=== PATIENT | female | born 1980 | race Caucasian/White ===

== ENCOUNTER 2024-07-16 14:07 | Inpatient (IN) | payer MEDICAID, OTHER ==
[~2024-07-16] VITALS: Ht 149.9 cm; Wt 63.3 kg
--- NOTE | 2024-07-16 14:28 | ED.PDOC ---
History of Present Illness HPI Comments 43 year old male presents to the ED with a chief complaint of generalized weakness onset 4 days. Patient states began experiencing LT flank, LUQ pain for the past 4 days, as well as chest pain for the past 2 days as well as shortness of breath, nausea, vomiting. Patient noticed her menstrual cycle has lasted 1 month, past 3 days has passed large blood clots with pelvic cramping. Upon ED arrival, patient appears pale, tachycardiac with HR 120. PMHx uterine fibroids, pancreatitis. Denies diarrhea, dysuria, headache, cough, congestion, fevers. No other symptoms or modifying factors present at this time. 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 Family History Family History: Unknown Social History Smoker: Cigarettes Alcohol: Occasionally Drugs: Denies Drug Use, Marijuana Lives In: Home Constitutional: reports: fatigue, weakness; denies: chills, diaphoresis, fever, malaise, sweats, others EENTM: denies: blurred vision, double vision, ear bleeding, ear discharge, ear drainage, ear pain, ear ringing, eye pain, eye redness, hearing loss, mouth pain, mouth swelling, nasal discharge, nose bleeding, nose congestion, nose pain, photophobia, tearing, throat pain, throat swelling, voice changes, others Respiratory: reports: shortness of breath; denies: cough, hemoptysis, orthopnea, SOB at rest, SOB with excertion, stridor, wheezing, others Cardiovascular: reports: chest pain; denies: dizzy spells, diaphoresis, Dyspnea on exertion, edema, irregular heart beat, left arm pain, lightheadedness, palpitations, PND, syncope, others Gastrointestinal: reports: abdominal pain, nausea, poor appetite, vomiting; denies: abdomen distended, blood streaked bowels, constipated, diarrhea, dysphagia, difficulty swallowing, hematemesis, melena, poor fluid intake, rectal bleeding, rectal pain, others Genitourinary: reports: abnormal vagina bleeding; denies: burning, dyspareunia, dysuria, flank pain, frequency, hematuria, incontinence, pain, , vagina discharge, urgency, others Neurological: reports: weakness; denies: dizziness, fainting, headache, left sided numbness, left sided weakness, numbness, paresthesia, pre-existing deficit, right sided numbness, right sided weakness, seizure, speech problems, tingling, tremors, others Musculoskeletal: denies: back pain, gout, joint pain, joint swelling, muscle pain, muscle stiffness, neck pain, others Integumetry: denies: bruises, change in color, change in hair/nails, dryness, laceration, lesions, lumps, rash, wounds, others Allergic/Immunocompromised: denies: Difficulty Healing, Frequent Infections, Hives, Itching, others Hematologic/Lymphatic: denies: anemia, blood clots, easy bleeding, easy bruising, swollen glands, others Endocrine: denies: excessive hunger, excessive sweating, excessive thirst, excessive urination, flushing, intolerance to cold, intolerance to heat, unexplained weight gain, unexplained weight loss, others Psychiatric: denies: anxiety, bipolar disorder, depression, hopeless, panic disorder, schizophrenia, sleepless, suicidal, others All Other Systems: Reviewed and Negative Physical Exam General Appearance: Moderate Distress, Normal HEENT: Normal ENT Inspection, Pharynx Normal, TMs Normal Neck: Full Range of Motion, Non-Tender, Normal, Normal Inspection Respiratory: Chest Non-Tender, Lungs Clear, No Accessory Muscle Use, No Respiratory Distress, Normal Breath Sounds Cardiovascular: No Edema, No JVD, No Murmur, No Gallop, Normal Peripheral Pulses, Tachycardia Breast Exam: Deferred Gastrointestinal: No Organomegaly, Non Tender, No Pulsatile Mass, Normal Bowel Sounds, Soft Genitalia: Deferred Pelvic: Deferred Rectal: Deferred Extremities: No calf tenderness, Normal capillary refill, Normal inspection, Normal range of motion, Non-tender, No pedal edema Musculoskeletal : Apperance: Normal Neurologic: Alert, work counselor II-XII nml as Tested, No Motor Deficits, Normal Affect, Normal Mood, No Sensory Deficits Cerebellar Function: NOT DONE Reflexes: NOT DONE Skin: Dry, Normal Color, Warm Peripheral Pulses: 3+ Radial (R), 3+ Radial (L) Lymphatic: No Adenopathy Was a procedure done? Was a procedure done?: No Differential Dx Considerations may include: Anemia Electrolyte imbalance X-Ray, Labs, Meds, VS Vital Signs Date Time Temp Pulse Resp B/P (MAP) Pulse Ox O2 Delivery O2 Flow Rate FiO2 07/16/24 15:31 103 14 137/89 07/16/24 14:53 88 14 98 Room Air* 0 21 07/16/24 14:53 97.5 101 18 138/95 (109) 94 97.5 07/16/24 14:50 92 07/16/24 14:20 126 07/16/24 14:17 98.6 125 17 126/85 (99) 100 98.6 Lab Test 07/16/24 14:47 07/16/24 14:14 Range/Units White Blood Count 8.1 4.4-10.8 10^3/uL Red Blood Count 3.95 L 4.0-5.20 10^6/uL Hemoglobin 8.2 L 12.2-16.2 g/dL Hematocrit 27.8 L 36.0-46.0 % Mean Corpuscular Volume 70.2 L 80.0-100.0 fL Mean Corpuscular Hemoglobin 20.7 L 28.0-32.0 pg Mean Corpuscular Hemoglobin Concent 29.5 L 32.0-36.0 g/dL Red Cell Distribution Width 20.9 H 11.8-14.3 % Platelet Count 412 140-450 10^3/uL Mean Platelet Volume 9.7 6.9-10.8 fL Neutrophils (%) (Auto) 67.1 37.0-80.0 % Lymphocytes (%) (Auto) 23.7 10.0-50.0 % Monocytes (%) (Auto) 6.0 0.0-12.0 % Eosinophils (%) (Auto) 1.7 0.0-7.0 % Basophils (%) (Auto) 1.5 0.0-2.0 % Neutrophils # (Auto) 5.5 1.6-8.6 10 ^3/uL Lymphocytes # (Auto) 1.9 0.4-5.4 10 ^3/uL Monocytes # (Auto) 0.5 0-1.3 10 ^3/uL Eosinophils # (Auto) 0.1 0-0.8 10 ^3/uL Basophils # (Auto) 0.1 0-0.2 10 ^3/uL Nucleated Red Blood Cells 0.0 % Sodium Level 135 L 136-145 mmol/L Potassium Level 4.1 3.5-5.1 mmol/L Chloride Level 99 98-107 mmol/L Carbon Dioxide Level 14 L 20-31 mmol/L Anion Gap 22 H 5-15 Blood Urea Nitrogen 11 9-23 mg/dL Creatinine 0.75 0.550-1.02 mg/dL Glomerular Filtration Rate Calc 102 >90 mL/min BUN/Creatinine Ratio 14.7 10.0-20.0 Serum Glucose 65 L 74-106 mg/dL Calcium Level 9.6 8.7-10.4 mg/dL Troponin I High Sensitivity < 3 L </=34 ng/L Lipase 197 H 12-53 U/L Urine Color Yellow Yellow Urine Clarity Turbid H Clear Urine pH 5.5 5.0-9.0 Urine Specific [place] 1.025 1.001-1.035 Urine Protein 1+ H Negative Urine Ketones 4+ H Negative Urine Blood 3+ H Negative /uL Urine Nitrite Negative Negative Urine Bilirubin Negative Negative Urine Urobilinogen 3 H Negative mg/dL Urine Leukocyte Esterase Negative Negative /uL Urine RBC 373 0 - 4 /hpf Urine Microscopic WBC 5 0-5 /HPF Urine Squamous Epithelial Cells Few <5 /hpf Urine Bacteria Few H None Seen /hpf Urine Hyaline Casts Mod 0 - 2 /lpf Urine Mucus Few None Seen Urine Glucose Normal Normal mg/dL Current Medications Medications (Trade) Dose Ordered Sig/Lashawn Route Start Time Stop Time Status Last Admin Sodium Chloride 1,000 ml @ 1,000 mls/hr Q1H ONCE IV 07/16/24 14:30 07/16/24 15:29 DC 07/16/24 15:30 Morphine Sulfate 2 mg ONCE ONCE IV 07/16/24 15:15 07/16/24 15:16 DC 07/16/24 15:31 Ondansetron HCl (Zofran) 4 mg ONCE ONCE IV 07/16/24 15:15 07/16/24 15:16 DC 07/16/24 15:31 Patient alert. Complaining of many symptoms. Vitals stable. Answering all questions. Abdomen is soft. Continues to have chest pain abdominal pain. Saturation pristine on room air. Lipase elevated. Anemia. Urinalysis shows blood. Has a anemia. Tachycardia. Saturation pristine on room air. No leg swelling. Urine shows ketones. Establish intravenous access. Was given fluids. Was given morphine. Was given Zofran. Was given Rocephin. Was given Flagyl. Reviewed her history. Explained to the patient. Continue cardiac monitoring. EKG reviewed does not show any acute changes. [address] [address] Ph: [phone] DIAGNOSTIC IMAGING Diagnostic Imaging Report : [id number] Signed PATIENT: HAYDE CARBAJAL RACCT: [id number] UNIT: [id number] : 1980 LOC: ER ROOM / BED: / AGE / SEX: 43 / F ADM STATUS: REG ER SERVICE 142 ORDERING PHYSICIAN: PILY KING MD PROCEDURE(s): CXRP - CHEST PORTABLE REASON: sob ORDER NUMBER(s): [id number], ACCESSION NUMBER(s): [id number] CHEST RADIOGRAPH Indication: sob Technique: Single frontal view of the chest was obtained Comparison: None FINDINGS: Lines and Tubes: None Lungs: No focal consolidation. Pleura: No effusion. No pneumothorax. Cardiomediastinal contours: Unremarkable Bones: No acute osseous abnormality. IMPRESSION: No acute cardiopulmonary disease. ATED BY: PAU BLOOD DO DICTATED DATE/TIME: 07/16/241510 SIGNED BY: PAU BLOOD DO SIGNED DATE/TIME: 07/16/24 151 CC: Time of 1ST Reevaluation: 14:49 Reevaluation 1ST: Unchanged Patient Education/Counseling: Diagnosis, Treatment, Prognosis Family Education/Counseling: No Family Present Departure 1 Departure Time of Disposition: 14:55 Impression: Primary Impression: Chest pain of unknown etiology Additional Impressions: Acute pancreatitis Qualified Codes: K85.90 - Acute pancreatitis without necrosis or infection, unspecified Severe anemia Dehydration Disposition: ADMITTED INPATIENT Admit to: Med Surg Condition: Guarded Critical Care Note Critical Care Time?: Yes (45 min-critical care time only) Stability Stability form required: No Heart Score Heart Score: Heart Score Response (Comments) Value History Slightly Suspicious 0 EKG Normal 0 Age <45 0 Risk Factors No known risk factors 0 Troponin Normal limit 0 Total 0 I personally scribed for PILY KING MD ([email or web address]) on 07/16/24 at 14:28. Electronically submitted by Yesenia Jay ([email or web address]). I personally scribed for PILY KING MD ([email or web address]) on 07/16/24 at 15:57. Electronically submitted by Yesenia Jay ([email or web address]). PILY KING MD Jul 16, 2024 14:28
--- NOTE | 2024-07-16 14:30 | ECG ---
[facility] Test Date: 2024-07-16 Test Time: 14:20:11 Pat Name: HAYDE CARBAJAL Department: ER Room: 0215T Gender: F Short Order Cook: GP : 1980 Requested By: PILY KING Order Number: [id number] Reading MD: Blair Heller Measurements Intervals [place] Rate: 126 P: 14 SC: 105 QRS: 73 QRSD: 86 T: 81 QT: 326 QTc: 473 Interpretive Statements Sinus tachycardia Multiple premature complexes, vent & supraven Aberrant complex Nonspecific T abnormalities, lateral leads Electronically Signed On 07-18-2024 22:08:22 PDT by Blair Heller Please click the below link to view image of tracing.
[2024-07-16 14:53] VITALS: PULSE 88; RESP 14; O2SAT 98
--- NOTE | 2024-07-16 15:13 | DVH ---
CHEST RADIOGRAPH Indication: sob Technique: Single frontal view of the chest was obtained Comparison: None FINDINGS: Lines and Tubes: None Lungs: No focal consolidation. Pleura: No effusion. No pneumothorax. Cardiomediastinal contours: Unremarkable Bones: No acute osseous abnormality. IMPRESSION: No acute cardiopulmonary disease.
[2024-07-16] MEDS: SODIUM CHLORIDE 0.9% 1,000 ML IV ONE (15:30)
[2024-07-16] MEDS: MORPHINE SULFATE INJ 2 MG/ml SYRG IV ONE ×2 (15:31→20:11)
[2024-07-16] MEDS: ONDANSETRON HCL 4 MG/2 ML VIAL IV ONE ×2 (15:31→20:11)
[2024-07-16 15:37] LABS: Basophils # (auto) 0.1 10 ^3/uL (0-0.2); Basophils % (auto) 1.5 % (0.0-2.0); Eosinophils # (auto) 0.1 10 ^3/uL (0-0.8); Eosinophils % (auto) 1.7 % (0.0-7.0); Hematocrit 27.8 % (36.0-46.0); Hemoglobin 8.2 g/dL (12.2-16.2); Lymphocytes # (auto) 1.9 10 ^3/uL (0.4-5.4); Lymphocytes % (auto) 23.7 % (10.0-50.0); Mean Corpuscular Hemoglobin 20.7 pg (28.0-32.0); Mean Corpuscular Hgb Conc. 29.5 g/dL (32.0-36.0); Mean Corpuscular Volume 70.2 fL (80.0-100.0); Monocytes # (auto) 0.5 10 ^3/uL (0-1.3); Neutrophils # (auto) 5.5 10 ^3/uL (1.6-8.6); Neutrophils % (auto) 67.1 % (37.0-80.0); Platelet Count (auto) 412 10^3/uL (140-450); Red Blood Cells 3.95 10^6/uL (4.0-5.20); Red Cell Distribution Width 20.9 % (11.8-14.3); White Blood Cell 8.1 10^3/uL (4.4-10.8)
[2024-07-16 15:39] LABS: Chloride 99 mmol/L (98-107); Potassium 4.1 mmol/L (3.5-5.1)
[2024-07-16 15:40] LABS: Anion Gap 22 (5-15); Calcium 9.6 mg/dL (8.7-10.4)
[2024-07-16 15:41] LABS: Urine Bacteria FEW /hpf (None Seen); Urine Blood 3+ /uL (Negative); Urine Clarity Turbid (Clear); Urine Color Yellow (Yellow); Urine Hyaline Cast MOD /lpf (0 - 2); Urine Mucus FEW (None Seen); Urine Protein, UAD 1+ (Negative); Urine Specific Gravity 1.025 (1.001-1.035); Urine Squamous Epithelial Cell FEW /hpf (<5); Urine Urobilinogen 3 mg/dL (Negative); Urine WBC 5 /HPF (0-5); Urine pH 5.5 (5.0-9.0)
[2024-07-16 15:45] LABS: BUN/Creatinine Ratio 14.7 (10.0-20.0); Blood Urea Nitrogen 11 mg/dL (9-23)
[2024-07-16 15:46] LABS: Carbon Dioxide 14 mmol/L (20-31); Glucose 65 mg/dL (74-106); Lipase 197 U/L (12-53); Sodium 135 mmol/L (136-145)
[2024-07-16] MEDS: metroNIDAZOLE 500MG/100ML 100 ML IV ONE (16:45)
[2024-07-16] MEDS: cefTRIAXone 1GM/50ML D5W 50 ML IV ONE (16:48)
--- NOTE | 2024-07-16 18:26 | DVH ---
Procedure: CT CT AB PEL WO CON-NO ORAL OR IV 07/16/2024 05:43 PM Indication: pancreas Comparison Study: None Technique: Axial images were obtained and reformatted in coronal and sagittal planes. All CT scans at this medical facility are performed using dose modulation techniques as appropriate to a performed e xam including the following: Automated exposure control was utilized; adjustment of the MA and/or KV according to patient size; and use of iterative reconstruction technique. CT Dose: CTDI volume is 6 m Gy. Dose-length product is 289 mGy*cm FINDINGS: Lower Chest: Unremarkable. Hepatobiliary: Hepatomegaly and hepatic steatosis with areas of focal hepatic mass. Adjacent to gall bladder fossa. No intrahepatic or extrahepatic ductal dilatation. Spleen: Unremarkable. Pancreas: Mild peripancreatic fat stranding noted. No pancreatic ductal dilatation. No solid or cyst ic lesions identified in this unenhanced study. Adrenal Glands: Unremarkable. tract: The kidneys are normal in size bilaterally without hydronephrosis or nephrolithiasis. The u rinary bladder is unremarkable. GI tract: The stomach is grossly normal in appearance. No evidence of small bowel obstruction. Scatte red colonic diverticula are noted without evidence of diverticulitis. The appendix is normal. Lymphatics: No mesenteric, retroperitoneal or periportal lymphadenopathy. Vasculature: The abdominal aorta is normal in in caliber. Pelvic Organs: Unremarkable Bones/soft tissues: No acute abnormality. Partially seen bilateral breast implants. Other: None. IMPRESSION: 1. Mild peripancreatic edema may indicate developing acute pancreatitis. No pancreatic ductal dilatat ion. No pseudocyst. 2. Hepatomegaly and hepatic steatosis. 3. Scattered colonic diverticula.
[2024-07-16 19:50] VITALS: PULSE 118; RESP 18; O2SAT 96
--- NOTE | 2024-07-16 23:49 | DVHHPRES ---
History of Present Illness Resident Creating Document: CORINE GRIFFITH RESDIENT History of Present Illness This is a 43-year-old female with past medical history of uterine fibroid recurrent pancreatitis (likely due to alcohol use disorder), came to the hospital due to abdominal pain since 4 day. Pain is localized on left upper quadrant radiating to the epigastric area, left lower quadrant and left shoulder, constant, 7/10, with no clear exacerbating or relieving factor. She also reports nausea, vomiting, shortness of breath, and constipation. She also reports heavy and painful menstruation, which started on 15 June and still has per vaginal bleeding with passing blood clots. She denies chest pain, constipation, diarrhea, or any recent sick contact. PMHx: Recurrent pancreatitis and uterine fibroid PSHx: Not significant Family history: No significant Social history: Smoke marijuana, heavy alcohol drinker (last showed was 2 days back), lives with the family at [facility] medication: Gabapentin Allergic history: No known allergy Review of Systems Review of Systems General: patient denies fever, fatigue, weaknes, sweating, any recent changes in appetite and weight HEENT: No headaches, visiual changes, hearing loss, tinnitus, nasal congestion and discharge, and sore throat. Cardiovascular: Denies chest pain, palpitations, dyspnea on exertion, orthopnea, or claudication. Respiratory: Reports shortness Gastrointestinal: Reports abdominal pain, nausea and vomiting Genitourinary: No dysuria, hematuria, discharge, frequency, urgency, nocturia, incontinence, and urinary retention. Endocrine: No heat or cold intolerance, polydipsia, polyuria, and polyphagia. Neurological: No dizziness, extremity weakness and numbness, tremors, gait disturbance, seizures, and memory impairment. Psychiatric: Denies depression, anxiety,or insomnia. Musculoskeletal: Denies neck pain, stiffness and swelling, back pain, muscle weakness, joint pain, stiffness, swelling, or limited range of motion. Skin: No rashes, itching, skin lesion, changes in hair, nail, skin texture and breast. Hematologic/Lymphatic: Denies easy bruising, bleeding tendencies, or lymph node enlargement. Gynecological: Reports heavy and painful menstruation Allergies: Coded Allergies: NO KNOWN ALLERGIES (Unverified , 11/04/09) Exam Vital Signs Vital Signs Date Time Temp Pulse Resp B/P (MAP) Pulse Ox O2 Delivery O2 Flow Rate FiO2 3/25 21:06 100 18 111/69 07/16/24 19:50 96 Room Air* 0 21 07/16/24 19:50 98.0 98.0 Exam General Appearance: Alert, Oriented X3, Cooperative, No acute distress HEENT: Atraumatic, PERRLA, EOMI, Mucous membrane moist/pink Respiratory: Clear to auscultation, Normal air movement Cardiovascular: Regular rate, Normal S1, Normal S2, No murmurs, no chest wall tenderness Abdominal: Abdominal tenderness on palpation Extremities: No clubbing, No cyanosis, No edema, Normal pulses, No tenderness/swelling Skin: No rashes, No breakdown, No significant lesion Neuro: Tremor during hand extension Psych/Mental Status: Mental status NL, Mood NL Labs/Xrays Labs Test 07/16/24 14:47 07/16/24 14:14 Range/Units White Blood Count 8.1 4.4-10.8 10^3/uL Red Blood Count 3.95 L 4.0-5.20 10^6/uL Hemoglobin 8.2 L 12.2-16.2 g/dL Hematocrit 27.8 L 36.0-46.0 % Mean Corpuscular Volume 70.2 L 80.0-100.0 fL Mean Corpuscular Hemoglobin 20.7 L 28.0-32.0 pg Mean Corpuscular Hemoglobin Concent 29.5 L 32.0-36.0 g/dL Red Cell Distribution Width 20.9 H 11.8-14.3 % Platelet Count 412 140-450 10^3/uL Mean Platelet Volume 9.7 6.9-10.8 fL Neutrophils (%) (Auto) 67.1 37.0-80.0 % Lymphocytes (%) (Auto) 23.7 10.0-50.0 % Monocytes (%) (Auto) 6.0 0.0-12.0 % Eosinophils (%) (Auto) 1.7 0.0-7.0 % Basophils (%) (Auto) 1.5 0.0-2.0 % Neutrophils # (Auto) 5.5 1.6-8.6 10 ^3/uL Lymphocytes # (Auto) 1.9 0.4-5.4 10 ^3/uL Monocytes # (Auto) 0.5 0-1.3 10 ^3/uL Eosinophils # (Auto) 0.1 0-0.8 10 ^3/uL Basophils # (Auto) 0.1 0-0.2 10 ^3/uL Nucleated Red Blood Cells 0.0 % Sodium Level 135 L 136-145 mmol/L Potassium Level 4.1 3.5-5.1 mmol/L Chloride Level 99 98-107 mmol/L Carbon Dioxide Level 14 L 20-31 mmol/L Anion Gap 22 H 5-15 Blood Urea Nitrogen 11 9-23 mg/dL Creatinine 0.75 0.550-1.02 mg/dL Glomerular Filtration Rate Calc 102 >90 mL/min BUN/Creatinine Ratio 14.7 10.0-20.0 Serum Glucose 65 L 74-106 mg/dL Calcium Level 9.6 8.7-10.4 mg/dL Troponin I High Sensitivity < 3 L </=34 ng/L Lipase 197 H 12-53 U/L Urine Color Yellow Yellow Urine Clarity Turbid H Clear Urine pH 5.5 5.0-9.0 Urine Specific [place] 1.025 1.001-1.035 Urine Protein 1+ H Negative Urine Ketones 4+ H Negative Urine Blood 3+ H Negative /uL Urine Nitrite Negative Negative Urine Bilirubin Negative Negative Urine Urobilinogen 3 H Negative mg/dL Urine Leukocyte Esterase Negative Negative /uL Urine RBC 373 0 - 4 /hpf Urine Microscopic WBC 5 0-5 /HPF Urine Squamous Epithelial Cells Few <5 /hpf Urine Bacteria Few H None Seen /hpf Urine Hyaline Casts Mod 0 - 2 /lpf Urine Mucus Few None Seen Urine Glucose Normal Normal mg/dL Assessment/Plan Assessment/Plan Recurrent pancreatitis, likely due to alcohol use disorder Alcohol use disorder ? Alcohol withdrawal Serum lipase is raised at 182, and abdominal CT scan shows mild peripancreatic edema may indicate developing acute pancreatitis, hepatomegaly and hepatic steatosis CIWA score is 8 NPO IV fluid Pain management Ativan p.r.n. 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 Case discussed with Dr. Workman. Plan discussed with: Patient, Other (RN) Date of Service: Jul 16, 2024 Billing Provider: ALLYSSA WORKMAN MD Common Visit Codes: 38981-[id number] INP/OBS CARE (HIGH) CORINE GRIFFITH VISHNU Jul 16, 2024 23:49 ALLYSSA WORKMAN MD Jul 17, 2024 11:03
[2024-07-17] VITALS (9 sets, daily range): BP systolic 120–146; BP diastolic 80–94; PULSE 71–107; RESP 16–20; TEMP 97.5–98.8; O2SAT 94–98
[2024-07-17] MEDS: SODIUM CHLORIDE 0.9% 1,000 ML IV ONE ×2 (00:05→03:32)
[2024-07-17] MEDS: KETOROLAC TROMETH 30 MG/ML 1ML VIAL IV PRN (00:05)
[2024-07-17] MEDS: LORazepam 2MG/ML-1ML VIAL IV PRN (00:05)
[2024-07-17] MEDS: PANTOPRAZOLE 40 MG/10 ML VIAL INJ IV ONE (00:05)
[2024-07-17 00:36] LABS: % Iron Saturation 9.9 % (15-50)
[2024-07-17 00:37] LABS: Blood Alcohol < 3.0 mg/dL (<10)
[2024-07-17 00:50] LABS: Lipase 143 U/L (12-53)
[2024-07-17 01:10] LABS: Ferritin 25.3 ng/mL (10-291)
[2024-07-17 01:11] LABS: Folate (Folic Acid) 6.25 ng/mL (>5.38)
[2024-07-17 01:25] LABS: LDL Cholesterol 90 mg/dL (< 100); Triglycerides 62 mg/dL (< 150)
[2024-07-17 01:26] LABS: Amphetamine Screen, Urine Pos (NEGATIVE); Barbiturate Scree,Urine Neg (NEGATIVE); Benzodiazephine Screen, Urine Neg (NEGATIVE); Cannabinoid Screen, Urine Neg (NEGATIVE); Cocaine Screen, Urine Neg (NEGATIVE); Opiate Scree,Urine Neg (NEGATIVE); Phencyclidine Screen, Urine Neg (NEGATIVE)
[2024-07-17 01:27] LABS: Cholesterol 158 mg/dL (< 200); HDL Cholesterol 57 mg/dL (40-59)
[2024-07-17 02:44] LABS: Lactic Acid w/Reflex 6.2 mmol/L (0.4-2.0)
[2024-07-17 03:26] LABS: Albumin 3.7 g/dL (3.2-4.8); Anion Gap 10 (5-15); BUN/Creatinine Ratio 13.9 (10.0-20.0); Blood Urea Nitrogen 11 mg/dL (9-23); Calcium 8.8 mg/dL (8.7-10.4); Carbon Dioxide 21 mmol/L (20-31); Chloride 102 mmol/L (98-107); Glucose 99 mg/dL (74-106); Potassium 3.9 mmol/L (3.5-5.1); Total Protein 6.2 g/dL (5.7-8.2)
[2024-07-17 03:29] LABS: Basophils # (auto) 0.1 10 ^3/uL (0-0.2); Neutrophils # (auto) 2.6 10 ^3/uL (1.6-8.6); Nucleated Red Blood Cells % 0.1 %; White Blood Cell 4.6 10^3/uL (4.4-10.8)
[2024-07-17 03:31] LABS: Basophils % (auto) 1.7 % (0.0-2.0); Eosinophils # (auto) 0.1 10 ^3/uL (0-0.8); Eosinophils % (auto) 3.2 % (0.0-7.0); Hematocrit 20.4 % (36.0-46.0); Lymphocytes # (auto) 1.4 10 ^3/uL (0.4-5.4); Lymphocytes % (auto) 30.2 % (10.0-50.0); Mean Corpuscular Hemoglobin 21.4 pg (28.0-32.0); Mean Corpuscular Hgb Conc. 30.1 g/dL (32.0-36.0); Mean Corpuscular Volume 71.1 fL (80.0-100.0); Monocytes # (auto) 0.4 10 ^3/uL (0-1.3); Monocytes % (auto) 8.1 % (0.0-12.0); Neutrophils % (auto) 56.8 % (37.0-80.0); Platelet Count (auto) 282 10^3/uL (140-450); Red Blood Cells 2.87 10^6/uL (4.0-5.20); Red Cell Distribution Width 20.6 % (11.8-14.3)
[2024-07-17 03:43] LABS: Alanine Aminotransferase 132 U/L (7-40); Alkaline Phosphatase 158 U/L (46-116); Aspartate Aminotransferase 272 U/L (13-40); Sodium 133 mmol/L (136-145)
[2024-07-17 03:45] LABS: Hemoglobin 6.1 g/dL (12.2-16.2)
[2024-07-17] MEDS: LORazepam 2MG/ML-1ML VIAL IV ONE (09:46)
[2024-07-17] MEDS ORDERED: ENOXAPARIN SOD 40 MG/0.4 ML SYRINGE SC SCH (10:00)
[2024-07-17] MEDS: PANTOPRAZOLE 40 MG/10 ML VIAL INJ IV SCH (10:00)
[2024-07-17] MEDS: HYDROMORPHONE HCL 1 MG/ML INJ IV PRN ×2 (12:42→23:03)
[2024-07-17] MEDS: LACTATED RINGER'S 1,000 ML IV ONE ×2 (12:43→20:46)
--- NOTE | 2024-07-17 13:41 | DVHINCON2 ---
Date of service: Jul 17, 2024 Referring Physician hospitalist Reason for Consultation menorrhagia with anemia History of Present Illness pt is admitted for weakness ,sob and abd pain.pt ahd menses taht lasted one month ,her last pap was many yrs AGO.PT HAS HEAVY DRINKING HABIT. SHE ALSO DOES DRUGS AND HAS HX OF PANCREATITIS. Past Medical History RECURRENT PANCRATITIS,FIBROID UTERUS Past Surgical History NA Family History NA Social History POS FOR DRINKING AND DRUGS Allergies: Coded Allergies: NO KNOWN ALLERGIES (Unverified , 11/04/09) Current Medications Current Medications Medications (Trade) Dose Ordered Sig/Lashawn Route PRN Reason Start Time Stop Time Status Last Admin Ondansetron HCl (Zofran) 4 mg Q4HP PRN IV NAUSEA / VOMITING 07/16/24 23:45 Enoxaparin Sodium (Lovenox) 40 mg DAILY SC 07/17/24 10:00 07/17/24 07:23 DC Ketorolac Tromethamine (Toradol Injection) 15 mg Q6HPRN PRN IV MILD PAIN (1-3 PAIN SCALE) 07/16/24 23:45 07/17/24 07:23 DC 07/17/24 00:05 Lorazepam (Ativan Inj) 1 mg Q2HP PRN IV ANXIETY 07/16/24 23:45 07/17/24 00:05 Pantoprazole Sodium (Protonix) 40 mg DAILY IV 07/17/24 10:00 Hydromorphone HCl (Dilaudid Innjection) 0.5 mg Q4HPRN PRN IV SEVERE PAIN (7-10 PAIN SCALE) 07/17/24 07:30 07/17/24 12:42 Review of Systems Constitutional: no fever, chill, weight loss HEENT: no eye pain, no hearing loss, no oral lesion, no scleral icterus Heart: no chest pain, no chest pressure Lung: no cough, no dyspnea with exertion Abdomen: see HPI : no pain with urination, normal appearing urine Musculoskeletal: no joint pain, no muscle pain Neurological: no seizure, no loss of sensation, no weakness in extremities Pysch: no depression, no anxiety Derm: no rash, no jaundice Vital Signs Vital Signs Date Time Temp Pulse Resp B/P (MAP) Pulse Ox O2 Delivery O2 Flow Rate FiO2 07/17/24 12:42 89 19 120/86 07/17/24 12:31 98.5 98.5 07/17/24 12:00 100 07/17/24 08:00 Room Air* 0 21 Physical Exam SKIN: [PALE ] HEENT: [PALE] NECK: [NL] CARDIAC: [RRR] PULMONARY: [CTA] ABDOMEN: SOFT,TENDER PELVIC- SOME BLEEDING NOTED,UTERUS BULKY Labs/Diagnostic Data Labs Test 07/17/24 06:30 07/17/24 02:58 07/17/24 00:00 07/16/24 14:47 Range/Units Lactic Acid Level 0.7 0.4-2.0 mmol/L White Blood Count 4.6 # 4.4-10.8 10^3/uL Red Blood Count 2.87 L 4.0-5.20 10^6/uL Hemoglobin 6.1 #*L 12.2-16.2 g/dL Hematocrit 20.4 #L 36.0-46.0 % Mean Corpuscular Volume 71.1 L 80.0-100.0 fL Mean Corpuscular Hemoglobin 21.4 L 28.0-32.0 pg Mean Corpuscular Hemoglobin Concent 30.1 L 32.0-36.0 g/dL Red Cell Distribution Width 20.6 H 11.8-14.3 % Platelet Count 282 140-450 10^3/uL Mean Platelet Volume 9.1 6.9-10.8 fL Neutrophils (%) (Auto) 56.8 37.0-80.0 % Lymphocytes (%) (Auto) 30.2 10.0-50.0 % Monocytes (%) (Auto) 8.1 0.0-12.0 % Eosinophils (%) (Auto) 3.2 0.0-7.0 % Basophils (%) (Auto) 1.7 0.0-2.0 % Neutrophils # (Auto) 2.6 1.6-8.6 10 ^3/uL Lymphocytes # (Auto) 1.4 0.4-5.4 10 ^3/uL Monocytes # (Auto) 0.4 0-1.3 10 ^3/uL Eosinophils # (Auto) 0.1 0-0.8 10 ^3/uL Basophils # (Auto) 0.1 0-0.2 10 ^3/uL Nucleated Red Blood Cells 0.1 % Sodium Level 133 L 136-145 mmol/L Potassium Level 3.9 3.5-5.1 mmol/L Chloride Level 102 98-107 mmol/L Carbon Dioxide Level 21 20-31 mmol/L Anion Gap 10 5-15 Blood Urea Nitrogen 11 9-23 mg/dL Creatinine 0.79 0.550-1.02 mg/dL Glomerular Filtration Rate Calc 96 >90 mL/min BUN/Creatinine Ratio 13.9 10.0-20.0 Serum Glucose 99 74-106 mg/dL Calcium Level 8.8 8.7-10.4 mg/dL Total Bilirubin 1.0 0.2-1.0 mg/dL Aspartate Amino Transferase (AST) 272 H 13-40 U/L Alanine Aminotransferase (ALT) 132 H 7-40 U/L Alkaline Phosphatase 158 H 46-116 U/L Total Protein 6.2 5.7-8.2 g/dL Albumin 3.7 3.2-4.8 g/dL D-Dimer, Quantitative 0.51 H 0.0-0.49 mg/L FEU Hemoglobin A1c < 3.8 <5.7 % A1C Iron Level 27 L 50-170 ug/dL Total Iron Binding Capacity 273 250-425 ug/dL Percent Iron Saturation 9.9 L 15-50 % Ferritin 25.3 10-291 ng/mL Triglycerides Level 62 < 150 mg/dL Cholesterol Level 158 < 200 mg/dL LDL Cholesterol 90 < 100 mg/dL HDL Cholesterol 57 40-59 mg/dL Lipase 143 H 12-53 U/L Vitamin B12 Level 933 H 211-911 pg/mL Folic Acid 6.25 >5.38 ng/mL Thyroid Stimulating Hormone (TSH) 2.16 0.55-4.78 uIU/mL Plasma/Serum Blood Alcohol < 3.0 <10 mg/dL Troponin I High Sensitivity < 3 L </=34 ng/L Test 07/16/24 14:14 Range/Units Urine Color Yellow Yellow Urine Clarity Turbid H Clear Urine pH 5.5 5.0-9.0 Urine Specific [place] 1.025 1.001-1.035 Urine Protein 1+ H Negative Urine Ketones 4+ H Negative Urine Blood 3+ H Negative /uL Urine Nitrite Negative Negative Urine Bilirubin Negative Negative Urine Urobilinogen 3 H Negative mg/dL Urine Leukocyte Esterase Negative Negative /uL Urine RBC 373 0 - 4 /hpf Urine Microscopic WBC 5 0-5 /HPF Urine Squamous Epithelial Cells Few <5 /hpf Urine Bacteria Few H None Seen /hpf Urine Hyaline Casts Mod 0 - 2 /lpf Urine Mucus Few None Seen Urine Glucose Normal Normal mg/dL Urine Opiates Screen Neg NEGATIVE Urine Fentanyl Screen Neg NEGATIVE Urine Barbiturates Screen Neg NEGATIVE Urine Phencyclidine Screen Neg NEGATIVE Urine Amphetamines Screen Pos NEGATIVE Urine Benzodiazepines Screen Neg NEGATIVE Urine Cocaine Screen Neg NEGATIVE Urine Cannabinoids Screen Neg NEGATIVE Primary Diagnosis ABNORMAL UTERINE BLEEDING WITH ANEMIA Admitting Diagnosis: PANCREATITIS 2' Diagnosis/Comorbidities DRUG USE,ALCOHOL USE Plan RECOMMEND BLOOD TRANSFUSION PELVIC US MAY BENEFIT FROM UTERINE ARTERY EMBOLIZATION Plan discussed with: Patient Visit Coding OBGYN Date of Service: Jul 17, 2024 Billing Provider: KRISTIE LUNA DO INTELLIGENCE CLERK Common Visit Codes: 53958-CWN/OBS SAME DATE (HIGH) INTELLIGENCE CLERK Consultation Codes: [id number] CONSULT <110MIN KRISTIE LUNA DO Jul 17, 2024 13:41
[2024-07-17] MEDS: ONDANSETRON HCL 4 MG/2 ML VIAL IV PRN (16:58)
[2024-07-17 19:15] LABS: Hemoglobin 8.4 g/dL (12.2-16.2)
[2024-07-17 19:18] LABS: Hematocrit 26.9 % (36.0-46.0)
--- NOTE | 2024-07-17 19:30 | DVHPNRES ---
Progress Note Date Seen: Jul 17, 2024 Resident Creating Document: RAMSES NUÑEZSALOMÓNBRIAN RESIDENT Medical Necessity Reason Pt with a Central, PICC or Fol: No Subjective Review of Systems Patient was a 43-year-old female with a past medical history of uterine fibroid, previous pancreatitis presented to the ED with a chief complaint of severe abdominal pain for 4 days prior to presentation. Patient reported that about 4 days before presentation she started to have sudden onset abdominal pain in the epigastrium in the left upper quadrant which radiated to the back, which was severe in intensity, constant with no clear exacerbating or relieving factors, associated with nausea and multiple episodes of vomiting and the patient was not able to keep anything down. Patient denied any blood in the vomitus. Patient also reported that she drinks alcohol, binge drinking on and off. She has previous episode of pancreatitis likely alcohol induced for which she was hospitalized. Patient also reports history of uterine fibroid but she has not been following up with the OBGYN and reports heavy menstrual bleeding lasting 9 days. Patient denied shortness of breath, chest pain, diarrhea or constipation. Past medical history: Uterine fibroid, previous pancreatitis Past surgical history: None Social history: Patient has a episodes of binge drinking 2 to 3 times a week, smokes marijuana and denies tobacco or any other illegal drug use Home medications: Gabapentin Review of systems Patient was seen and examined at the bedside in the morning. She reported that the abdominal pain had improved and she was feeling hungry. Patient was anxious, restless and fidgety, had tremors in bilateral upper extremities, had mild light sensitivity which indicated likely alcohol withdrawal Has heavy and painful menstruation Objective vital signs Vital Sign Date Time Temp Pulse Resp B/P (MAP) Pulse Ox O2 Delivery O2 Flow Rate FiO2 07/17/24 17:30 80 16 138/86 07/17/24 17:00 97.5 97 97.5 07/17/24 13:42 Room Air* 0 21 Total Intake and Output 07/16/24 07/16/24 07/17/24 15:00 23:00 07:00 Intake Total 1150 ml Balance 1150 ml medications Current Medications Medications Dose Ordered Sig/Lashawn Route Start Time Stop Time Status Last Admin Dose Admin Ondansetron HCl 4 mg Q4HP PRN IV 07/16/24 23:45 07/17/24 16:58 4 MG Lorazepam 1 mg Q2HP PRN IV 07/16/24 23:45 07/17/24 00:05 1 MG Pantoprazole Sodium 40 mg DAILY IV 07/17/24 10:00 Hydromorphone HCl 0.5 mg Q4HPRN PRN IV 07/17/24 07:30 07/17/24 17:00 0.5 MG Examination Constitutional: Patient was alert and oriented X 3 and appear to be in mild distress because of the abdominal pain and alcohol withdrawal Gen - mild conjunctival pallor, no icterus, no cyanosis, no clubbing, no LAD, no edema . Skin - Patients skin is warm and dry. HEENT - normocephalic, atraumatic, dry mucous membranes. Neck - full ROM, no LAD, no JVD Pulmonary - B/L equal breath sounds, no crackles , no wheezing, no stridor. cardiovascular - variable S1,S2 heard. No added sounds, no murmurs heard. GI - soft abdomen with tenderness to palpation in the epigastrium in the left upper quadrant .no hepatospleenomegaly. Bowel sounds normoactive Neurological - Bilateral upper extremity strength 5/5, bilateral lower extremity strength 5/5, no facial droop, normal speech, no tremor, no sensory deficiets. laboratory and microbiology Laboratory Tests 07/17/24 02:58 Test 07/17/24 02:58 Range/Units Serum Glucose 99 74-106 mg/dL Problem List/Assessment/Plan Problem List/Assessment/Plan Assessment Acute intractable abdominal pain likely due to pancreatitis Acute pancreatitis likely alcohol induced Alcohol withdrawal syndrome Microcytic hypochromic anemia likely due to menorrhagia Iron-deficiency Menorrhagia likely due to uterine fibroid Transaminitis with a hepatomegaly and hepatic steatosis likely alcohol-induced - lipase 197 - CT abdomen pelvis without contrast IMPRESSION: 1. Mild peripancreatic edema may indicate developing acute pancreatitis. No pancreatic ductal dilatation. No pseudocyst. 2. Hepatomegaly and hepatic steatosis. 3. Scattered colonic diverticula. Plan - IV fluids - started on clear liquid diet but the patient reported pain, now NPO - 1 unit PRBCs given, H&H to be repeated and if HGB less than 7 another unit will be given - IV iron - on Ativan for alcohol withdrawal - OBGYN consulted recommended doing a pelvic ultrasound and that the patient may benefit from uterine artery embolization - Dilaudid for pain control Goals of care discussed with the patient for over 25 minutes. Full code Plan discussed with Dr. Mcnulty Plan discussed with: Patient My Orders My Orders Orders - CARO NUÑEZ Procedure Category Date Status Time Hydromorphone Hcl Inj PHA 07/17/24 In Process (Dilaudid Innjecti 07:30 Clear Liq Diet DIET 07/17/24 Transmitted Breakfast Lactated Ringer's PHA 07/17/24 In Process 09:15 Hemoglobin & LAB 07/17/24 Logged Hematocrit 17:48 CC Plasma Assessment Blood Product Administration S: 1015 Date of Service: Jul 17, 2024 Billing Provider: RITO MCNULTY MD Common Visit Codes: [id number] INP/OBS CARE(HIGH) CARO NUÑEZ RESIDENT Jul 17, 2024 19:30 RITO MCNULTY MD Jul 30, 2024 21:42
[2024-07-17] MEDS: LORazepam 2MG/ML-1ML VIAL IV SCH (20:40)
--- NOTE | 2024-07-17 21:44 | DVH ---
INDICATION: uterine fibroid TECHNIQUE: Multiple real-time grayscale transabdominal sonographic images along with color and duplex Doppler of the uterus and ovaries were obtained. COMPARISON: None FINDINGS: The uterus measures 9 x 5.2 x 5.6 cm. cm. The endometrial stripe measures 0.63 cm. There is a 3.4 x 3.3 x 2.7 cm hyperechoic intramural mass near the fundus of the uterus likely a fibroid. The right ovary measures 2.7 x 3 x 1.9 cm. The left ovary measures 2.9 x 1.9 x 2 cm cm. Subsequent color and duplex Doppler interrogation of the ovaries demonstrated symmetric vascular flow to both ovaries, though this does not exclude the possibility of torsion due to the dual blood suppl y. IMPRESSION: 1. 3.4 x 3.3 x 2.7 cm intramural hyperechoic lesion in the fundus of the uterus on the right consiste nt with a fibroid. 2. Ovaries are normal
[2024-07-18] VITALS (8 sets, daily range): BP systolic 111–138; BP diastolic 74–92; PULSE 78–92; RESP 16–20; TEMP 97.9–98.2; O2SAT 94–99
[2024-07-18 06:50] LABS: Albumin 3.5 g/dL (3.2-4.8); Anion Gap 8 (5-15); BUN/Creatinine Ratio 9.6 (10.0-20.0); Calcium 8.8 mg/dL (8.7-10.4); Carbon Dioxide 26 mmol/L (20-31); Chloride 102 mmol/L (98-107); Total Protein 5.8 g/dL (5.7-8.2)
[2024-07-18 06:52] LABS: Alanine Aminotransferase 108 U/L (7-40); Alkaline Phosphatase 161 U/L (46-116); Aspartate Aminotransferase 245 U/L (13-40); Blood Urea Nitrogen 5 mg/dL (9-23); Glucose 115 mg/dL (74-106); Potassium 3.5 mmol/L (3.5-5.1); Sodium 136 mmol/L (136-145)
[2024-07-18 07:09] LABS: Basophils # (auto) 0.1 10 ^3/uL (0-0.2); Lymphocytes # (auto) 1.4 10 ^3/uL (0.4-5.4); Monocytes # (auto) 0.4 10 ^3/uL (0-1.3); Monocytes % (auto) 6.7 % (0.0-12.0); Neutrophils # (auto) 3.4 10 ^3/uL (1.6-8.6); White Blood Cell 5.5 10^3/uL (4.4-10.8)
[2024-07-18 07:12] LABS: Basophils % (auto) 1.6 % (0.0-2.0); Eosinophils # (auto) 0.2 10 ^3/uL (0-0.8); Eosinophils % (auto) 4.5 % (0.0-7.0); Hematocrit 24.9 % (36.0-46.0); Hemoglobin 7.9 g/dL (12.2-16.2); Lymphocytes % (auto) 25.9 % (10.0-50.0); Mean Corpuscular Hemoglobin 23.3 pg (28.0-32.0); Mean Corpuscular Hgb Conc. 31.9 g/dL (32.0-36.0); Neutrophils % (auto) 61.3 % (37.0-80.0); Nucleated Red Blood Cells % 0.1 %; Platelet Count (auto) 243 10^3/uL (140-450); Red Cell Distribution Width 21.8 % (11.8-14.3)
[2024-07-18 08:07] LABS: Anisocytosis Slight; Hypochromia Moderate; Platelet Estimate Adequate
[2024-07-18 08:57] LABS: INR 1.05 (0.9-1.15); Partial Thromboplastin Time 23.6 SEC (24.5-34.5); Prothrombin Time 11.1 sec (9.3-11.8)
[2024-07-18] MEDS: IRON SUCROSE COMPLEX 110 ML IV SCH (11:58)
[2024-07-18] MEDS ORDERED: LORazepam 2MG/ML-1ML VIAL IM ONE (15:15)
[2024-07-18] MEDS: chlordiazePOXIDE HCL 25 MG CAP PO ONE (18:01)
[2024-07-18] MEDS: D5W/SOD CHL 0.45% 1,000 ML IV ONE (18:21)
[2024-07-18] MEDS: chlordiazePOXIDE HCL 25 MG CAP PO SCH (21:49)
--- NOTE | 2024-07-18 22:24 | DVHPNRES ---
Progress Note Date Seen: Jul 18, 2024 Resident Creating Document: JHAJJDANIELLAALVAREZ RESIDENT Medical Necessity Reason Pt with a Central, PICC or Fol: No Subjective Review of Systems Patient reported improvement in the abdominal pain following which she was given clear liquid diet but she still reported pain after eating food. Patient was again kept NPO CIWA score on assessment in the morning 12 Patient denied chest pain, shortness of breath, palpitations, nausea, vomiting, diarrhea H&H above threshold for transfusion Objective vital signs Vital Sign Date Time Temp Pulse Resp B/P (MAP) Pulse Ox O2 Delivery O2 Flow Rate FiO2 07/18/24 22:10 86 18 111/74 07/18/24 21:00 98.2 94 98.2 07/18/24 08:00 Room Air* 0 21 Total Intake and Output 07/17/24 07/17/24 07/18/24 15:00 23:00 07:00 Intake Total 600 ml 0 ml 385 ml Balance 600 ml 0 ml 385 ml medications Current Medications Medications Dose Ordered Sig/Lashawn Route Start Time Stop Time Status Last Admin Dose Admin Ondansetron HCl 4 mg Q4HP PRN IV 07/16/24 23:45 07/17/24 16:58 4 MG Pantoprazole Sodium 40 mg DAILY IV 07/17/24 10:00 07/18/24 10:04 40 MG Iron Sucrose 110 ml @ 110 mls/hr DAILY@1200 IV 07/18/24 12:00 07/22/24 12:59 07/18/24 11:58 110 MLS/HR Hydromorphone HCl 0.25 mg Q4HPRN PRN IV 07/17/24 19:30 07/18/24 22:10 0.25 MG Chlordiazepoxide HCl 50 mg Q12HR PO 07/18/24 22:00 07/19/24 10:01 07/18/24 21:49 50 MG Chlordiazepoxide HCl 25 mg Q12HR PO 07/19/24 22:00 07/20/24 10:01 Chlordiazepoxide HCl 25 mg QAM PO 07/21/24 07:00 07/21/24 07:01 Examination Constitutional: Patient was alert and oriented X 3 and appear to be in mild distress because of the abdominal pain and alcohol withdrawal Gen - mild conjunctival pallor, no icterus, no cyanosis, no clubbing, no LAD, no edema . Skin - Patients skin is warm and dry. HEENT - normocephalic, atraumatic, dry mucous membranes. Neck - full ROM, no LAD, no JVD Pulmonary - B/L equal breath sounds, no crackles , no wheezing, no stridor. cardiovascular - variable S1,S2 heard. No added sounds, no murmurs heard. GI - soft abdomen with tenderness to palpation in the epigastrium and the left upper quadrant .no hepatospleenomegaly. Bowel sounds normoactive Neurological - Bilateral upper extremity strength 5/5, bilateral lower extremity strength 5/5, no facial droop, normal speech, no tremor, no sensory deficiets. laboratory and microbiology Laboratory Tests 07/18/24 05:13 Test 07/18/24 05:13 Range/Units Serum Glucose 115 H 74-106 mg/dL Microbiology Date/Time Source Procedure Growth Status 07/17/24 23:12 Nose MRSA Screen - Final Complete 07/16/24 14:14 Voided Urine Urine Culture - Preliminary Resulted Problem List/Assessment/Plan Problem List/Assessment/Plan Assessment Acute intractable abdominal pain likely due to pancreatitis Acute pancreatitis likely alcohol induced Alcohol withdrawal syndrome Microcytic hypochromic anemia likely due to menorrhagia Iron-deficiency Menorrhagia likely due to uterine fibroid Transaminitis with a hepatomegaly and hepatic steatosis likely alcohol-induced - lipase 197 - CT abdomen pelvis without contrast IMPRESSION: 1. Mild peripancreatic edema may indicate developing acute pancreatitis. No pancreatic ductal dilatation. No pseudocyst. 2. Hepatomegaly and hepatic steatosis. 3. Scattered colonic diverticula. Plan - IV fluids - started on clear liquid diet but the patient reported pain, now NPO - 1 unit PRBCs given, H&H to be repeated and if HGB less than 7 another unit will be given - IV iron - on Librium for alcohol withdrawal - OBGYN consulted recommended doing a pelvic ultrasound and that the patient may benefit from uterine artery embolization - Dilaudid for pain control Goals of care discussed with the patient for over 25 minutes. Full code Plan discussed with Dr. Dickson Carrizales discussed with: Patient My Orders My Orders Orders - CARO NUÑEZ RESIDENT Procedure Category Date Status Time D5w/Sod Chl 0.45% PHA 07/18/24 In Process (D5w 1/2ns) 18:00 Chlordiazepoxide Hcl PHA 07/18/24 In Process Capsule (Librium Ca 22:00 Chlordiazepoxide Hcl PHA 07/19/24 In Process Capsule (Librium Ca 22:00 Chlordiazepoxide Hcl PHA 07/21/24 In Process Capsule (Librium Ca 07:00 Dietary Evaluation Review Comments: Encourage to enrole in an alcoholic rebab program, follow a low fat high protei diet,avoid sugar and fat, Expected Outcomes/Goals: improved nutrition parameters CC Plasma Assessment Blood Product Administration S: 1015 Date of Service: Jul 18, 2024 Billing Provider: RITO MCNULTY MD Common Visit Codes: [id number] INP/OBS CARE(HIGH) CARO NUÑEZ RESIDENT Jul 18, 2024 22:24 RITO MCNULTY MD Jul 30, 2024 21:52
[2024-07-19] VITALS (8 sets, daily range): BP systolic 107–144; BP diastolic 60–95; PULSE 72–99; RESP 15–17; TEMP 98.2–98.5; O2SAT 93–98
[2024-07-19 06:37] LABS: Basophils # (auto) 0.1 10 ^3/uL (0-0.2); Eosinophils # (auto) 0.3 10 ^3/uL (0-0.8); Hemoglobin 8.2 g/dL (12.2-16.2); Lymphocytes # (auto) 1.3 10 ^3/uL (0.4-5.4); Monocytes # (auto) 0.3 10 ^3/uL (0-1.3); Neutrophils # (auto) 2.4 10 ^3/uL (1.6-8.6); White Blood Cell 4.3 10^3/uL (4.4-10.8)
[2024-07-19 06:43] LABS: Basophils % (auto) 1.6 % (0.0-2.0); Eosinophils % (auto) 6.4 % (0.0-7.0); Hematocrit 26.1 % (36.0-46.0); Lymphocytes % (auto) 29.9 % (10.0-50.0); Mean Corpuscular Hemoglobin 23.1 pg (28.0-32.0); Mean Corpuscular Hgb Conc. 31.4 g/dL (32.0-36.0); Mean Corpuscular Volume 73.5 fL (80.0-100.0); Monocytes % (auto) 6.4 % (0.0-12.0); Neutrophils % (auto) 55.7 % (37.0-80.0); Nucleated Red Blood Cells % 0.1 %; Platelet Count (auto) 276 10^3/uL (140-450); Red Blood Cells 3.55 10^6/uL (4.0-5.20); Red Cell Distribution Width 22.3 % (11.8-14.3)
[2024-07-19 06:51] LABS: Alanine Aminotransferase 116 U/L (7-40); Albumin 3.4 g/dL (3.2-4.8); Alkaline Phosphatase 157 U/L (46-116); Anion Gap 9 (5-15); Aspartate Aminotransferase 243 U/L (13-40); BUN/Creatinine Ratio 6.5 (10.0-20.0); Bilirubin, Total 0.7 mg/dL (0.2-1.0); Blood Urea Nitrogen < 5 mg/dL (9-23); Carbon Dioxide 26 mmol/L (20-31); Chloride 102 mmol/L (98-107); Glucose 112 mg/dL (74-106); Potassium 3.4 mmol/L (3.5-5.1); Sodium 137 mmol/L (136-145); Total Protein 5.8 g/dL (5.7-8.2)
[2024-07-19 09:49] LABS: Hepatitis B Surface Antibody Negative (Negative); Hepatitis C Antibody Negative (Negative)
[2024-07-19] MEDS: POTASSIUM EFFERVESENT TAB 25 MEQ PO ONE (13:16)
--- NOTE | 2024-07-19 17:39 | DVHINCON2 ---
Date of Service if different f: Jul 19, 2024 Consultation (STAR) Labs Laboratory Tests Test 07/16/24 14:14 07/16/24 14:47 07/17/24 00:00 07/17/24 02:58 Urine Color Yellow (Yellow) Urine Clarity Turbid (Clear) Urine pH 5.5 (5.0-9.0) Urine Specific [place] 1.025 (1.001-1.035) Urine Protein 1+ (Negative) Urine Ketones 4+ (Negative) Urine Blood 3+ /uL (Negative) Urine Nitrite Negative (Negative) Urine Bilirubin Negative (Negative) Urine Urobilinogen 3 mg/dL (Negative) Urine Leukocyte Esterase Negative /uL (Negative) Urine RBC 373 /hpf (0 - 4) Urine Microscopic WBC 5 /HPF (0-5) Urine Squamous Epithelial Cells Few /hpf (<5) Urine Bacteria Few /hpf (None Seen) Urine Hyaline Casts Mod /lpf (0 - 2) Urine Mucus Few (None Seen) Urine Glucose Normal mg/dL (Normal) Urine Opiates Screen Neg (NEGATIVE) Urine Fentanyl Screen Neg (NEGATIVE) Urine Barbiturates Screen Neg (NEGATIVE) Urine Phencyclidine Screen Neg (NEGATIVE) Urine Amphetamines Screen Pos (NEGATIVE) Urine Benzodiazepines Screen Neg (NEGATIVE) Urine Cocaine Screen Neg (NEGATIVE) Urine Cannabinoids Screen Neg (NEGATIVE) Troponin I High Sensitivity < 3 ng/L (</=34) D-Dimer, Quantitative 0.51 mg/L FEU (0.0-0.49) Hemoglobin A1c < 3.8 % A1C (<5.7) Iron Level 27 ug/dL (50-170) Total Iron Binding Capacity 273 ug/dL (250-425) Percent Iron Saturation 9.9 % (15-50) Ferritin 25.3 ng/mL (10-291) Triglycerides Level 62 mg/dL (< 150) Cholesterol Level 158 mg/dL (< 200) LDL Cholesterol 90 mg/dL (< 100) HDL Cholesterol 57 mg/dL (40-59) Lipase 143 U/L (12-53) Vitamin B12 Level 933 pg/mL (211-911) Folic Acid (LAB) 6.25 ng/mL (>5.38) Thyroid Stimulating Hormone (TSH) 2.16 uIU/mL (0.55-4.78) Plasma/Serum Blood Alcohol < 3.0 mg/dL (<10) Hepatitis B Surface Antibody Negative (Negative) Hepatitis C Antibody Negative (Negative) Test 07/17/24 06:30 07/18/24 05:13 07/18/24 08:25 07/19/24 05:50 Lactic Acid Level 0.7 mmol/L (0.4-2.0) Platelet Estimate Adequate Clumped Platelets Hypochromasia (manual) Moderate Anisocytosis (manual) Slight Microcytosis Moderate Prothrombin Time 11.1 sec (9.3-11.8) Prothromb Time International Ratio 1.05 (0.9-1.15) Activated Partial Thromboplast Time 23.6 SEC (24.5-34.5) White Blood Count 4.3 10^3/uL (4.4-10.8) Red Blood Count 3.55 10^6/uL (4.0-5.20) Hemoglobin 8.2 g/dL (12.2-16.2) Hematocrit 26.1 % (36.0-46.0) Mean Corpuscular Volume 73.5 fL (80.0-100.0) Mean Corpuscular Hemoglobin 23.1 pg (28.0-32.0) Mean Corpuscular Hemoglobin Concent 31.4 g/dL (32.0-36.0) Red Cell Distribution Width 22.3 % (11.8-14.3) Platelet Count 276 10^3/uL (140-450) Mean Platelet Volume 9.7 fL (6.9-10.8) Neutrophils (%) (Auto) 55.7 % (37.0-80.0) Lymphocytes (%) (Auto) 29.9 % (10.0-50.0) Monocytes (%) (Auto) 6.4 % (0.0-12.0) Eosinophils (%) (Auto) 6.4 % (0.0-7.0) Basophils (%) (Auto) 1.6 % (0.0-2.0) Neutrophils # (Auto) 2.4 10 ^3/uL (1.6-8.6) Lymphocytes # (Auto) 1.3 10 ^3/uL (0.4-5.4) Monocytes # (Auto) 0.3 10 ^3/uL (0-1.3) Eosinophils # (Auto) 0.3 10 ^3/uL (0-0.8) Basophils # (Auto) 0.1 10 ^3/uL (0-0.2) Nucleated Red Blood Cells 0.1 % Sodium Level 137 mmol/L (136-145) Potassium Level 3.4 mmol/L (3.5-5.1) Chloride Level 102 mmol/L (98-107) Carbon Dioxide Level 26 mmol/L (20-31) Anion Gap 9 (5-15) Blood Urea Nitrogen < 5 mg/dL (9-23) Creatinine 0.77 mg/dL (0.550-1.02) Glomerular Filtration Rate Calc 99 mL/min (>90) BUN/Creatinine Ratio 6.5 (10.0-20.0) Serum Glucose 112 mg/dL (74-106) Calcium Level 9.0 mg/dL (8.7-10.4) Total Bilirubin 0.7 mg/dL (0.2-1.0) Aspartate Amino Transf (AST/SGOT) 243 U/L (13-40) Alanine Aminotransferase (ALT/SGPT) 116 U/L (7-40) Alkaline Phosphatase 157 U/L (46-116) Total Protein 5.8 g/dL (5.7-8.2) Albumin 3.4 g/dL (3.2-4.8) Microbiology Date/Time Source Procedure Growth Status 07/17/24 23:12 Nose MRSA Screen - Final Complete 07/16/24 14:14 Voided Urine Urine Culture - Final Complete Appetite: Limited Appearance: Stated age, Groomed Psychomotor activity: WNL Behavioral: Cooperative Eye contact: Limited Speech: WNL, Soft Affect: Guarded Mood: Neutral Thought processes: Linear/Goal-directed Thought content: WNL Suicidal ideations: Absent Homicidal ideations: Absent Orientation: Person, Place, Time, Situation Memory intact: Recent Intellect: Average Abstractability: WNL Concentration: Adequate Attention: Adequate Judgement: WNL Insight: Limited Vitals Vital Signs Date Time Temp Pulse Resp B/P (MAP) Pulse Ox O2 Delivery O2 Flow Rate FiO2 07/19/24 13:17 83 16 111/74 07/19/24 13:00 98.2 98 98.2 07/19/24 08:00 Room Air* 0 21 Current medications Current Medications Medications Dose Ordered Sig/Lashawn Route Start Time Stop Time Status Last Admin Dose Admin Ondansetron HCl 4 mg Q4HP PRN IV 07/16/24 23:45 07/17/24 16:58 4 MG Pantoprazole Sodium 40 mg DAILY IV 07/17/24 10:00 07/19/24 08:29 40 MG Iron Sucrose 110 ml @ 110 mls/hr DAILY@1200 IV 07/18/24 12:00 07/22/24 12:59 07/19/24 13:16 110 MLS/HR Hydromorphone HCl 0.25 mg Q4HPRN PRN IV 07/17/24 19:30 07/19/24 13:17 0.25 MG Chlordiazepoxide HCl 25 mg Q12HR PO 07/19/24 22:00 07/20/24 10:01 Chlordiazepoxide HCl 25 mg QAM PO 07/21/24 07:00 07/21/24 07:01 Medication adjusted: Yes Diagnosis: unspecified mood disorder, alcohol abuse disorder, stimulant use disorder Plan : patient denies suicidal/homicidal ideation. She does appear guarded, appears to minimize her symptoms Recommend starting prozac 20mg po qam Patient may go voluntarily to inpatient hospital if willing, at this time, she is unsure if she wants inpatient treatment. She does not meet criteria for 5150 hold encouraged substance avoidance and rehab programs She may discharge home if refusing inpatient psych transfer. History of Present Illness Reason for Consult : patient with hx of substance use. Per report, reported to mom plan to fill car up with water after discharge HPI : This is 43-year-old female with hx of polysubstance use of alcohol, marijuana, and methamphetamines, presents to the hospital for abdominal pain. patient is evaluated via telepsychiatry. She is guarded on exam. She denies reporting to mom suicidal thoughts or plan to fill up car with water, she rep orts telling mom this was a nightmare. When asked if she is feeling depressed, she only responds that she is in pain. She does not answer if depressed, hopeless or anhedonia. She denies suicidal/homicidal ideation. She does reports poor sleep and limited ability to eat due to abdominal. She reports needing alcohol to help her feel normal when asked to elaborate, she does not. She denies any prior hx of ron or psychosis. When asked if she is willing to go to inpatient psych hospitalization, she replies that she is not sure at time but will let director social know. Past Psychiatric History : She denies any prior formal mental health diagnosis. She reports one voluntary inpatient admission prior to [facility]. She denies prior 5150holds. She denies prior suicide attempts. She does reports prior trials of antidepressants but cannot recall last use or names of meds. She denies current outpatient mental follow up. Past Medical History : she reports hx of pancreatitis, uterine fibroids Social History : She reports living in her vehicle mostly but at times stays with friends. She reports employment sometimes. She reports being and has adult children. She reports alcohol use for many years. She reports drinking daily, about half pint of vodka. She reports marijuana occasionally use. She reports meth use was in the past, denies recent use. Her toxicology is positive for amphetamines. She reports father had history of substance use, denies other known family history. [facility] Jul 19, 2024 17:39
--- NOTE | 2024-07-19 21:54 | DVHPNRES ---
Progress Note Date Seen: Jul 19, 2024 Resident Creating Document: DANIELLA NUÑEZALVAREZ RESIDENT Medical Necessity Reason Pt with a Central, PICC or Fol: No Subjective Review of Systems Patient reported improvement in the abdominal pain following which she was given clear liquid diet which she tolerated well. diet advanced to soft diet CIWA score on assessment in the morning 10 Patient denied chest pain, shortness of breath, palpitations, nausea, vomiting, diarrhea H&H stable Patient assessed by telepsych today Objective vital signs Vital Sign Date Time Temp Pulse Resp B/P (MAP) Pulse Ox O2 Delivery O2 Flow Rate FiO2 07/19/24 21:00 98.2 72 17 117/77 (90) 96 98.2 07/19/24 08:00 Room Air* 0 21 Total Intake and Output 07/18/24 07/18/24 07/19/24 15:00 23:00 07:00 Intake Total 0 ml 150 ml Balance 0 ml 150 ml medications Current Medications Medications Dose Ordered Sig/Lashawn Route Start Time Stop Time Status Last Admin Dose Admin Ondansetron HCl 4 mg Q4HP PRN IV 07/16/24 23:45 07/17/24 16:58 4 MG Pantoprazole Sodium 40 mg DAILY IV 07/17/24 10:00 07/19/24 08:29 40 MG Iron Sucrose 110 ml @ 110 mls/hr DAILY@1200 IV 07/18/24 12:00 07/22/24 12:59 07/19/24 13:16 110 MLS/HR Hydromorphone HCl 0.25 mg Q4HPRN PRN IV 07/17/24 19:30 07/19/24 18:14 0.25 MG Chlordiazepoxide HCl 25 mg Q12HR PO 07/19/24 22:00 07/20/24 10:01 Chlordiazepoxide HCl 25 mg QAM PO 07/21/24 07:00 07/21/24 07:01 Examination Constitutional: Patient was alert and oriented X 3 and appear to be in mild distress because of the abdominal pain and alcohol withdrawal Gen - mild conjunctival pallor, no icterus, no cyanosis, no clubbing, no LAD, no edema . Skin - Patients skin is warm and dry. HEENT - normocephalic, atraumatic, dry mucous membranes. Neck - full ROM, no LAD, no JVD Pulmonary - B/L equal breath sounds, no crackles , no wheezing, no stridor. cardiovascular - variable S1,S2 heard. No added sounds, no murmurs heard. GI - soft abdomen with tenderness to palpation in the epigastrium and the left upper quadrant .no hepatospleenomegaly. Bowel sounds normoactive Neurological - Bilateral upper extremity strength 5/5, bilateral lower extremity strength 5/5, no facial droop, normal speech, no tremor, no sensory deficiets. laboratory and microbiology Laboratory Tests 07/19/24 05:50 Test 07/19/24 05:50 Range/Units Serum Glucose 112 H 74-106 mg/dL Microbiology Date/Time Source Procedure Growth Status 07/17/24 23:12 Nose MRSA Screen - Final Complete 07/16/24 14:14 Voided Urine Urine Culture - Final Complete Problem List/Assessment/Plan Problem List/Assessment/Plan Assessment Acute intractable abdominal pain likely due to pancreatitis Acute pancreatitis likely alcohol induced Alcohol withdrawal syndrome Microcytic hypochromic anemia likely due to menorrhagia Iron-deficiency Menorrhagia likely due to uterine fibroid Transaminitis with a hepatomegaly and hepatic steatosis likely alcohol-induced Unspecified mood disorder Substance use disorder - lipase 197 - CT abdomen pelvis without contrast IMPRESSION: 1. Mild peripancreatic edema may indicate developing acute pancreatitis. No pancreatic ductal dilatation. No pseudocyst. 2. Hepatomegaly and hepatic steatosis. 3. Scattered colonic diverticula. Plan - IV fluids - 1 unit PRBCs given, H&H to be repeated and if HGB less than 7 another unit will be given - IV iron - on Librium for alcohol withdrawal - OBGYN consulted recommended doing a pelvic ultrasound and that the patient may benefit from uterine artery embolization - Dilaudid for pain control - as per psych recommendation, patient started on prozac 20mg - tolerated clear liquid diet well and was advanced to soft diet Goals of care discussed with the patient for over 25 minutes. Full code Plan discussed with Dr. Dickson Carrizales discussed with: Patient My Orders My Orders Orders - CARO NUÑEZ RESIDENT Procedure Category Date Status Time Electrocardigram EKG 07/19/24 Logged 15:40 Transfer Orders XFER 07/19/24 Transmitted 21:42 Discontinue Tele JOHN 07/19/24 In Process 21:42 Dietary Evaluation Review Comments: Encourage to enrole in an alcoholic rebab program, follow a low fat high protei diet,avoid sugar and fat, Expected Outcomes/Goals: improved nutrition parameters CC Plasma Assessment Blood Product Administration S: 1015 Date of Service: Jul 19, 2024 Billing Provider: RITO MCNULTY MD Common Visit Codes: [id number] INP/OBS CARE(HIGH) CARO NUÑEZ RESIDENT Jul 19, 2024 21:54 RITO MCNULTY MD Jul 31, 2024 19:43
[2024-07-19] MEDS: chlordiazePOXIDE HCL 25 MG CAP PO SCH (22:00)
[2024-07-20] VITALS (7 sets, daily range): BP systolic 100–137; BP diastolic 68–95; PULSE 69–97; RESP 17–18; TEMP 97.8–98.3; O2SAT 96–99
[2024-07-20 05:27] LABS: Basophils # (auto) 0.1 10 ^3/uL (0-0.2); Basophils % (auto) 1.6 % (0.0-2.0); Eosinophils # (auto) 0.3 10 ^3/uL (0-0.8); Eosinophils % (auto) 5.9 % (0.0-7.0); Hematocrit 27.7 % (36.0-46.0); Hemoglobin 8.5 g/dL (12.2-16.2); Lymphocytes # (auto) 1.2 10 ^3/uL (0.4-5.4); Mean Corpuscular Hemoglobin 22.8 pg (28.0-32.0); Mean Corpuscular Hgb Conc. 30.8 g/dL (32.0-36.0); Mean Corpuscular Volume 74.1 fL (80.0-100.0); Monocytes # (auto) 0.4 10 ^3/uL (0-1.3); Monocytes % (auto) 8.9 % (0.0-12.0); Neutrophils # (auto) 2.5 10 ^3/uL (1.6-8.6); Neutrophils % (auto) 55.6 % (37.0-80.0); Nucleated Red Blood Cells % 0.2 %; Platelet Count (auto) 283 10^3/uL (140-450); Red Blood Cells 3.74 10^6/uL (4.0-5.20); White Blood Cell 4.5 10^3/uL (4.4-10.8)
[2024-07-20 05:41] LABS: Albumin 3.7 g/dL (3.2-4.8); Anion Gap 6 (5-15); Bilirubin, Total 0.7 mg/dL (0.2-1.0); Calcium 9.2 mg/dL (8.7-10.4); Carbon Dioxide 27 mmol/L (20-31); Chloride 106 mmol/L (98-107); Sodium 139 mmol/L (136-145); Total Protein 6.1 g/dL (5.7-8.2)
[2024-07-20 05:45] LABS: Alanine Aminotransferase 126 U/L (7-40); Alkaline Phosphatase 167 U/L (46-116); Aspartate Aminotransferase 254 U/L (13-40); BUN/Creatinine Ratio 7.8 (10.0-20.0); Blood Urea Nitrogen < 5 mg/dL (9-23); Glucose 126 mg/dL (74-106); Potassium 3.5 mmol/L (3.5-5.1)
--- NOTE | 2024-07-20 14:01 | DVHPN2 ---
Subjective escalating diet, no SI per patient, seen by psych, cleared. starting SSRI. Changes from previous H/P or p: No Changes Objective Vitals Vital Signs Date Time Temp Pulse Resp B/P (MAP) Pulse Ox O2 Delivery O2 Flow Rate FiO2 07/20/24 13:30 97.8 69 18 100/69 (79) 97 97.8 07/20/24 08:00 Room Air* 0 21 Intake/Output Intake and Output 07/20/24 07:00 Intake Total 660 ml Balance 660 ml Intake Oral 550 ml IV Total 110 ml # Voids 2 Medications Current Medications Medications Dose Ordered Sig/Lashawn Route Start Time Stop Time Status Last Admin Dose Admin Ondansetron HCl 4 mg Q4HP PRN IV 07/16/24 23:45 07/17/24 16:58 4 MG Pantoprazole Sodium 40 mg DAILY IV 07/17/24 10:00 07/20/24 08:45 40 MG Iron Sucrose 110 ml @ 110 mls/hr DAILY@1200 IV 07/18/24 12:00 07/22/24 12:59 07/20/24 12:56 110 MLS/HR Hydromorphone HCl 0.25 mg Q4HPRN PRN IV 07/17/24 19:30 07/20/24 13:05 0.25 MG Chlordiazepoxide HCl 25 mg QAM PO 07/21/24 07:00 07/21/24 07:01 Laboratory Results Laboratory Tests 07/20/24 04:55 Chemistry Test 07/20/24 04:55 Albumin 3.7 g/dL (3.2-4.8) Calcium Level 9.2 mg/dL (8.7-10.4) Total Protein 6.1 g/dL (5.7-8.2) LFT Test 07/20/24 04:55 Alanine Aminotransferase (ALT) 126 U/L (7-40) H Alkaline Phosphatase 167 U/L (46-116) H Aspartate Amino Transferase (AST) 254 U/L (13-40) H Total Bilirubin 0.7 mg/dL (0.2-1.0) Urinalysis Test 07/16/24 14:14 Urine Color Yellow (Yellow) Urine Clarity Turbid (Clear) H Urine pH 5.5 (5.0-9.0) Urine Specific [place] 1.025 (1.001-1.035) Urine Protein 1+ (Negative) H Urine Ketones 4+ (Negative) H Urine Blood 3+ /uL (Negative) H Urine Nitrite Negative (Negative) Urine Bilirubin Negative (Negative) Urine Urobilinogen 3 mg/dL (Negative) H Urine Leukocyte Esterase Negative /uL (Negative) Urine RBC 373 /hpf (0 - 4) Urine Microscopic WBC 5 /HPF (0-5) Urine Squamous Epithelial Cells Few /hpf (<5) Urine Bacteria Few /hpf (None Seen) H Urine Hyaline Casts Mod /lpf (0 - 2) Urine Mucus Few (None Seen) Urine Glucose Normal mg/dL (Normal) Microbiology Microbiology Date/Time Source Procedure Growth Status 07/17/24 23:12 Nose MRSA Screen - Final Complete 07/16/24 14:14 Voided Urine Urine Culture - Final Complete Assessment/Plan Assessment/Plan Assessment Acute intractable abdominal pain likely due to pancreatitis Acute pancreatitis likely alcohol induced Alcohol withdrawal syndrome Microcytic hypochromic anemia likely due to menorrhagia Iron-deficiency Menorrhagia likely due to uterine fibroid Transaminitis with a hepatomegaly and hepatic steatosis likely alcohol-induced Unspecified mood disorder Substance use disorder nightmares MDD? - lipase 197 - CT abdomen pelvis without contrast IMPRESSION: 1. Mild peripancreatic edema may indicate developing acute pancreatitis. No pancreatic ductal dilatation. No pseudocyst. 2. Hepatomegaly and hepatic steatosis. 3. Scattered colonic diverticula. Plan - IV fluids - 1 unit PRBCs given, H&H to be repeated and if HGB less than 7 another unit will be given - IV iron - on Librium for alcohol withdrawal - OBGYN consulted recommended doing a pelvic ultrasound and that the patient may benefit from uterine artery embolization - Dilaudid for pain control - as per psych recommendation, patient started on prozac 20mg - tolerated clear liquid diet well and was advanced to soft diet start SSRI Goals of care discussed with the patient for over 25 minutes. Full code Plan discussed with: Patient Date of Service: Jul 20, 2024 Billing Provider: RITO MCNULTY MD Common Visit Codes: [id number] INP/OBS CARE(HIGH) RITO MCNULTY MD Jul 20, 2024 14:01
--- NOTE | 2024-07-20 14:03 | ECG ---
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
[2024-07-20] MEDS: FLUoxetine HCL 20 MG CAP PO ONE (15:41)
[2024-07-21] VITALS (7 sets, daily range): BP systolic 100–121; BP diastolic 56–77; PULSE 64–83; RESP 16–18; TEMP 97.7–98.2; O2SAT 94–99
[2024-07-21] MEDS: chlordiazePOXIDE HCL 25 MG CAP PO SCH (06:19)
[2024-07-21] MEDS: FLUoxetine HCL 20 MG CAP PO SCH (08:09)
[2024-07-21] MEDS: POLYETHYLENE GLYCOL 17 GM PWDR PO ONE (09:35)
--- NOTE | 2024-07-21 13:38 | DVHDS2 ---
Discharge Summary Date of Admission Jul 16, 2024 at 23:44 Date of Discharge: Jul 21, 2024 Labs/Diagnostic Data: Laboratory Results Test 07/20/24 04:55 07/18/24 08:25 07/18/24 05:13 07/17/24 06:30 White Blood Count 4.5 10^3/uL (4.4-10.8) Red Blood Count 3.74 10^6/uL (4.0-5.20) Hemoglobin 8.5 g/dL (12.2-16.2) Hematocrit 27.7 % (36.0-46.0) Mean Corpuscular Volume 74.1 fL (80.0-100.0) Mean Corpuscular Hemoglobin 22.8 pg (28.0-32.0) Mean Corpuscular Hemoglobin Concent 30.8 g/dL (32.0-36.0) Red Cell Distribution Width 23.0 % (11.8-14.3) Platelet Count 283 10^3/uL (140-450) Mean Platelet Volume 9.3 fL (6.9-10.8) Neutrophils (%) (Auto) 55.6 % (37.0-80.0) Lymphocytes (%) (Auto) 28.0 % (10.0-50.0) Monocytes (%) (Auto) 8.9 % (0.0-12.0) Eosinophils (%) (Auto) 5.9 % (0.0-7.0) Basophils (%) (Auto) 1.6 % (0.0-2.0) Neutrophils # (Auto) 2.5 10 ^3/uL (1.6-8.6) Lymphocytes # (Auto) 1.2 10 ^3/uL (0.4-5.4) Monocytes # (Auto) 0.4 10 ^3/uL (0-1.3) Eosinophils # (Auto) 0.3 10 ^3/uL (0-0.8) Basophils # (Auto) 0.1 10 ^3/uL (0-0.2) Nucleated Red Blood Cells 0.2 % Sodium Level 139 mmol/L (136-145) Potassium Level 3.5 mmol/L (3.5-5.1) Chloride Level 106 mmol/L (98-107) Carbon Dioxide Level 27 mmol/L (20-31) Anion Gap 6 (5-15) Blood Urea Nitrogen < 5 mg/dL (9-23) Creatinine 0.64 mg/dL (0.550-1.02) Glomerular Filtration Rate Calc 113 mL/min (>90) BUN/Creatinine Ratio 7.8 (10.0-20.0) Serum Glucose 126 mg/dL (74-106) Calcium Level 9.2 mg/dL (8.7-10.4) Total Bilirubin 0.7 mg/dL (0.2-1.0) Aspartate Amino Transferase (AST) 254 U/L (13-40) Alanine Aminotransferase (ALT) 126 U/L (7-40) Alkaline Phosphatase 167 U/L (46-116) Total Protein 6.1 g/dL (5.7-8.2) Albumin 3.7 g/dL (3.2-4.8) Prothrombin Time 11.1 sec (9.3-11.8) Prothrombin Time INR 1.05 (0.9-1.15) Activated Partial Thromboplast Time 23.6 SEC (24.5-34.5) Platelet Estimate Adequate Clumped Platelets Hypochromasia (manual) Moderate Anisocytosis (manual) Slight Microcytosis Moderate Lactic Acid Level 0.7 mmol/L (0.4-2.0) Test 07/17/24 02:58 07/17/24 00:00 07/16/24 14:47 07/16/24 14:14 Hepatitis B Surface Antibody Negative (Negative) Hepatitis C Antibody Negative (Negative) D-Dimer, Quantitative 0.51 mg/L FEU (0.0-0.49) Hemoglobin A1c < 3.8 % A1C (<5.7) Iron Level 27 ug/dL (50-170) Total Iron Binding Capacity 273 ug/dL (250-425) Percent Iron Saturation 9.9 % (15-50) Ferritin 25.3 ng/mL (10-291) Triglycerides Level 62 mg/dL (< 150) Cholesterol Level 158 mg/dL (< 200) LDL Cholesterol 90 mg/dL (< 100) HDL Cholesterol 57 mg/dL (40-59) Lipase 143 U/L (12-53) Vitamin B12 Level 933 pg/mL (211-911) Folic Acid 6.25 ng/mL (>5.38) Thyroid Stimulating Hormone (TSH) 2.16 uIU/mL (0.55-4.78) Plasma/Serum Blood Alcohol < 3.0 mg/dL (<10) Troponin I High Sensitivity < 3 ng/L (</=34) Urine Color Yellow (Yellow) Urine Clarity Turbid (Clear) Urine pH 5.5 (5.0-9.0) Urine Specific [place] 1.025 (1.001-1.035) Urine Protein 1+ (Negative) Urine Ketones 4+ (Negative) Urine Blood 3+ /uL (Negative) Urine Nitrite Negative (Negative) Urine Bilirubin Negative (Negative) Urine Urobilinogen 3 mg/dL (Negative) Urine Leukocyte Esterase Negative /uL (Negative) Urine RBC 373 /hpf (0 - 4) Urine Microscopic WBC 5 /HPF (0-5) Urine Squamous Epithelial Cells Few /hpf (<5) Urine Bacteria Few /hpf (None Seen) Urine Hyaline Casts Mod /lpf (0 - 2) Urine Mucus Few (None Seen) Urine Glucose Normal mg/dL (Normal) Urine Opiates Screen Neg (NEGATIVE) Urine Fentanyl Screen Neg (NEGATIVE) Urine Barbiturates Screen Neg (NEGATIVE) Urine Phencyclidine Screen Neg (NEGATIVE) Urine Amphetamines Screen Pos (NEGATIVE) Urine Benzodiazepines Screen Neg (NEGATIVE) Urine Cocaine Screen Neg (NEGATIVE) Urine Cannabinoids Screen Neg (NEGATIVE) Other Laboratory Tests 07/20/24 04:55 Brief Hx & Hospital Course: This is a 43-year-old female with past medical history of uterine fibroid recurrent pancreatitis (likely due to alcohol use disorder), came to the hospital due to abdominal pain since 4 day. Pain is localized on left upper quadrant radiating to the epigastric area, left lower quadrant and left shoulder, constant, 7/10, with no clear exacerbating or relieving factor. She also reports nausea, vomiting, shortness of breath, and constipation. She also reports heavy and painful menstruation, which started on 15 June and still has per vaginal bleeding with passing blood clots. She denies chest pain, constipation, diarrhea, or any recent sick contact. pain management, iv fluid and clear liquid diet. once telarated, diet is escalated. patients mom reported SI, per patient was a dream and not true, seen by psych, cleared. stable to [facility], librium taper completed inpatient Condition at Discharge: Good Final Diagnosis/Problems List acute alcoholic pancreatitis Discharge Disposition: Home 39 Discharge Statement: "Patient was advised to return to the ER or call 911 if any headaches, dizziness, shortness of breath, chest pain, abdominal pain, bleeding, fevers, or worsening of medical condition. Patient was counseled about treatment plan, medications, possible side effects, patientverbalized understanding. All questions were answered to the best of my ability. This discharge took greater then 30 minutes in planning, reviewing documentation, counseling the patient, and discussing with other team members." ASSESSMENT ASSESSMENT Assessment Acute intractable abdominal pain likely due to pancreatitis Acute pancreatitis likely alcohol induced Alcohol withdrawal syndrome Microcytic hypochromic anemia likely due to menorrhagia Iron-deficiency Menorrhagia likely due to uterine fibroid Transaminitis with a hepatomegaly and hepatic steatosis likely alcohol-induced Unspecified mood disorder Substance use disorder nightmares MDD? Date of Service: Jul 21, 2024 Billing Provider: RITO MCNULTY MD Common Visit Codes: [id number]/[id number] DISCH DAY >30min RITO MCNULTY MD Jul 21, 2024 13:38
[2024-07-21] MEDS ORDERED: FLUO-470 PO (13:39)
[2024-07-21] MEDS ORDERED: TRAM-626 PO (13:41)
[2024-07-21] MEDS: traMADol HCL 50 MG TAB PO PRN (20:19)
[2024-07-21] MEDS: DOCUSATE SOD 100 MG CAP PO SCH (21:12)
[2024-07-22] VITALS (7 sets, daily range): BP systolic 102–116; BP diastolic 65–81; PULSE 78–94; RESP 16–18; TEMP 97.7–98.1; O2SAT 95–99
--- NOTE | 2024-07-22 16:05 | DVHPN2 ---
Subjective back to clear liq Changes from previous H/P or p: No Changes Objective Vitals Vital Signs Date Time Temp Pulse Resp B/P (MAP) Pulse Ox O2 Delivery O2 Flow Rate FiO2 07/22/24 13:00 97.7 88 16 116/81 (93) 97 97.7 07/22/24 08:00 Room Air* 0 21 Intake/Output Intake and Output 07/22/24 07:00 Intake Total 1840 ml Balance 1840 ml Intake Oral 1730 ml IV Total 110 ml # Voids 5 Medications Current Medications Medications Dose Ordered Sig/Lashawn Route Start Time Stop Time Status Last Admin Dose Admin Ondansetron HCl 4 mg Q4HP PRN IV 07/16/24 23:45 07/21/24 20:19 4 MG Pantoprazole Sodium 40 mg DAILY IV 07/17/24 10:00 07/22/24 09:37 40 MG Fluoxetine HCl 20 mg DAILY PO 07/21/24 10:00 07/22/24 09:37 20 MG Tramadol HCl 50 mg BID PRN PO 07/21/24 14:30 07/22/24 09:37 50 MG Laboratory Results Laboratory Tests 07/20/24 04:55 Urinalysis Test 07/16/24 14:14 Urine Color Yellow (Yellow) Urine Clarity Turbid (Clear) H Urine pH 5.5 (5.0-9.0) Urine Specific [place] 1.025 (1.001-1.035) Urine Protein 1+ (Negative) H Urine Ketones 4+ (Negative) H Urine Blood 3+ /uL (Negative) H Urine Nitrite Negative (Negative) Urine Bilirubin Negative (Negative) Urine Urobilinogen 3 mg/dL (Negative) H Urine Leukocyte Esterase Negative /uL (Negative) Urine RBC 373 /hpf (0 - 4) Urine Microscopic WBC 5 /HPF (0-5) Urine Squamous Epithelial Cells Few /hpf (<5) Urine Bacteria Few /hpf (None Seen) H Urine Hyaline Casts Mod /lpf (0 - 2) Urine Mucus Few (None Seen) Urine Glucose Normal mg/dL (Normal) Microbiology Microbiology Date/Time Source Procedure Growth Status 07/17/24 23:12 Nose MRSA Screen - Final Complete 07/16/24 14:14 Voided Urine Urine Culture - Final Complete Assessment/Plan Assessment/Plan Assessment Acute intractable abdominal pain likely due to pancreatitis Acute pancreatitis likely alcohol induced Alcohol withdrawal syndrome Microcytic hypochromic anemia likely due to menorrhagia Iron-deficiency Menorrhagia likely due to uterine fibroid Transaminitis with a hepatomegaly and hepatic steatosis likely alcohol-induced Unspecified mood disorder Substance use disorder nightmares MDD? - lipase 197 - CT abdomen pelvis without contrast IMPRESSION: 1. Mild peripancreatic edema may indicate developing acute pancreatitis. No pancreatic ductal dilatation. No pseudocyst. 2. Hepatomegaly and hepatic steatosis. 3. Scattered colonic diverticula. Plan - IV fluids - 1 unit PRBCs given, H&H to be repeated and if HGB less than 7 another unit will be given - IV iron - on Librium for alcohol withdrawal - OBGYN consulted recommended doing a pelvic ultrasound and that the patient may benefit from uterine artery embolization - Dilaudid for pain control - as per psych recommendation, patient started on prozac 20mg - tolerated clear liquid diet well and was advanced to soft diet start SSRI Goals of care discussed with the patient for over 25 minutes. Full code Plan discussed with: Patient My Orders Orders - RITO MCNULTY MD Procedure Category Date Status Time Clear Liq Diet DIET 07/22/24 Transmitted Dinner Hydrocodone-Acet PHA 07/22/24 Transmitted 5/325mg Tab ([place] 16:15 Date of Service: Jul 22, 2024 Billing Provider: RITO MCNULTY MD Common Visit Codes: [id number] INP/OBS CARE(HIGH) RITO MCNULTY MD Jul 22, 2024 16:05
[2024-07-22] MEDS: HYDROcodone-ACET 5/325MG TAB PO PRN (17:52)
[2024-07-22] MEDS: SODIUM CHLORIDE 0.9% 1,000 ML IV ONE (17:58)
[2024-07-23] VITALS (7 sets, daily range): BP systolic 104–126; BP diastolic 64–81; PULSE 62–96; RESP 16–18; TEMP 97.6–98.5; O2SAT 94–98
[2024-07-23 06:29] LABS: Basophils # (auto) 0.1 10 ^3/uL (0-0.2); Eosinophils # (auto) 0.3 10 ^3/uL (0-0.8); Lymphocytes # (auto) 1.5 10 ^3/uL (0.4-5.4); Monocytes # (auto) 0.6 10 ^3/uL (0-1.3); Neutrophils # (auto) 2.6 10 ^3/uL (1.6-8.6); Neutrophils % (auto) 51.2 % (37.0-80.0); White Blood Cell 5.1 10^3/uL (4.4-10.8)
[2024-07-23 06:32] LABS: Basophils % (auto) 2.3 % (0.0-2.0); Hemoglobin 8.2 g/dL (12.2-16.2); Mean Corpuscular Hemoglobin 24.1 pg (28.0-32.0); Mean Corpuscular Hgb Conc. 31.5 g/dL (32.0-36.0); Mean Corpuscular Volume 76.5 fL (80.0-100.0); Monocytes % (auto) 12.5 % (0.0-12.0); Nucleated Red Blood Cells % 0.1 %; Platelet Count (auto) 301 10^3/uL (140-450)
[2024-07-23 06:46] LABS: Red Cell Distribution Width 27.2 % (11.8-14.3)
[2024-07-23 06:56] LABS: Anion Gap 9 (5-15); Carbon Dioxide 25 mmol/L (20-31); Chloride 105 mmol/L (98-107); Potassium 3.8 mmol/L (3.5-5.1); Sodium 139 mmol/L (136-145)
[2024-07-23 07:02] LABS: BUN/Creatinine Ratio 13.2 (10.0-20.0); Glucose 92 mg/dL (74-106)
[2024-07-23 07:04] LABS: Phosphorus 3.6 mg/dL (2.4-5.1)
[2024-07-23 07:06] LABS: Blood Urea Nitrogen 9 mg/dL (9-23); Calcium 8.5 mg/dL (8.7-10.4); Magnesium 1.5 mg/dL (1.6-2.6)
[2024-07-23 07:52] LABS: Anisocytosis Moderate; Hypochromia Slight; Platelet Estimate Adequate
--- NOTE | 2024-07-23 13:19 | DVHPN2 ---
Assessment/Plan Assessment/Plan Progress note This is a 43-year-old female with past medical history of uterine fibroid recurrent pancreatitis (likely due to alcohol use disorder), came to the hospital due to abdominal pain since 4 day. Pain is localized on left upper quadrant radiating to the epigastric area, left lower quadrant and left shoulder, constant, 7/10, with no clear exacerbating or relieving factor. She also reports nausea, vomiting, shortness of breath, and constipation. She also reports heavy and painful menstruation, which started on 15 June and still has per vaginal bleeding with passing blood clots. She denies chest pain, constipation, diarrhea, or any recent sick contact. seen today during rounds, partially tolerating clear, still vomiting. repeat CT physical exam aox3 clear breath sounds s1 s2 rrr no murmur abdomen soft, mildly tender no LE edema labs ekg imaging reviewed Assessment Acute intractable abdominal pain likely due to pancreatitis Acute pancreatitis likely alcohol induced Alcohol withdrawal syndrome Microcytic hypochromic anemia likely due to menorrhagia Iron-deficiency Menorrhagia likely due to uterine fibroid Transaminitis with a hepatomegaly and hepatic steatosis likely alcohol-induced Unspecified mood disorder Substance use disorder nightmares MDD? - IV fluids - 1 unit PRBCs given, H&H to be repeated and if HGB less than 7 another unit will be given - IV iron - on Librium for alcohol withdrawal - OBGYN consulted recommended doing a pelvic ultrasound and that the patient may benefit from uterine artery embolization - morphine for pain control - as per psych recommendation, patient started on prozac 20mg - tolerated clear liquid diet well and was advanced to soft diet start SSRI repeat ct diet clear dvt ppx ambulatory Plan discussed with: Patient My Orders Orders - RITO MCNULTY MD Procedure Category Date Status Time Clear Liq Diet DIET 07/22/24 Transmitted Dinner Hydrocodone-Acet PHA 07/22/24 In Process 5/325mg Tab ([place] 16:15 Ct Ab Pel Wo Con-No CT 07/23/24 Logged Oral Or Iv 13:15 Alum & Mag PHA 07/23/24 Verified Hydrox-Simethicone 13:30 Morphine Sulfate PHA 07/23/24 Verified Injection 13:30 Date of Service: Jul 23, 2024 Billing Provider: RITO MCNULTY MD Common Visit Codes: [id number] INP/OBS CARE(HIGH) RITO MCNULTY MD Jul 23, 2024 13:19
[2024-07-23] MEDS: MORPHINE SULFATE INJ 2 MG/ml SYRG IV PRN (14:58)
--- NOTE | 2024-07-23 15:03 | DVH ---
Exam: CT CT AB PEL WO CON-NO ORAL OR IV History: intvl pancreatitis Comparison Study: CT CT AB PEL WO CON-NO ORAL OR IV on DOS: 07/16/24 TECHNIQUE: Multidetector CT of the abdomen and pelvis was performed from lung bases to pubic symphysi s. Imaging was performed without IV contrast. Axial, coronal, and sagittal multiplanar reformats were obtained from the axial data set by the technologist. RADIATION DOSE: DLP 457.56 mGy.cm; CTDI vol 8.45 mGy. Findings: Limited evaluation given noncontrast technique. Lungs: The lung bases are clear. Heart: No cardiomegaly or pericardial effusion. Liver: Unremarkable. Gallbladder: Unremarkable. Spleen: Unremarkable Pancreas: Unremarkable Adrenals: Unremarkable Kidneys: Unremarkable GI tract: Unremarkable : Unremarkable. Vasculature: Unremarkable Lymphadenopathy: Absent Peritoneum: No ascites Musculoskeletal: Unremarkable Soft tissues: Unremarkable Impression: 1. Limited evaluation given noncontrast technique. 2. No acute abdominopelvic abnormalities.
[2024-07-23] MEDS: MAALOX PLUS or MAALOX 30 ML PO PRN (18:14)
[2024-07-24] VITALS (7 sets, daily range): BP systolic 111–137; BP diastolic 74–103; PULSE 73–125; RESP 14–17; TEMP 97.7–98.5; O2SAT 95–98
[2024-07-24 07:59] LABS: Basophils # (auto) 0.1 10 ^3/uL (0-0.2); Basophils % (auto) 2.5 % (0.0-2.0); Eosinophils # (auto) 0.2 10 ^3/uL (0-0.8); Eosinophils % (auto) 4.7 % (0.0-7.0); Hematocrit 28.5 % (36.0-46.0); Hemoglobin 9.1 g/dL (12.2-16.2); Lymphocytes # (auto) 1.5 10 ^3/uL (0.4-5.4); Lymphocytes % (auto) 28.5 % (10.0-50.0); Mean Corpuscular Hemoglobin 24.9 pg (28.0-32.0); Mean Corpuscular Hgb Conc. 32.1 g/dL (32.0-36.0); Mean Corpuscular Volume 77.4 fL (80.0-100.0); Monocytes # (auto) 0.6 10 ^3/uL (0-1.3); Monocytes % (auto) 12.3 % (0.0-12.0); Neutrophils # (auto) 2.7 10 ^3/uL (1.6-8.6); Nucleated Red Blood Cells % 0.1 %; Platelet Count (auto) 339 10^3/uL (140-450); Red Blood Cells 3.68 10^6/uL (4.0-5.20); White Blood Cell 5.1 10^3/uL (4.4-10.8)
[2024-07-24 08:00] LABS: Red Cell Distribution Width 27.8 % (11.8-14.3)
[2024-07-24 08:15] LABS: Anion Gap 9 (5-15); Carbon Dioxide 27 mmol/L (20-31); Chloride 104 mmol/L (98-107); Potassium 3.8 mmol/L (3.5-5.1); Sodium 140 mmol/L (136-145)
[2024-07-24 08:16] LABS: Calcium 9.5 mg/dL (8.7-10.4)
[2024-07-24 08:20] LABS: Glucose 92 mg/dL (74-106)
[2024-07-24 08:21] LABS: BUN/Creatinine Ratio 9.2 (10.0-20.0); Blood Urea Nitrogen 7 mg/dL (9-23); Magnesium 1.8 mg/dL (1.6-2.6)
[2024-07-24 08:23] LABS: Phosphorus 3.3 mg/dL (2.4-5.1)
--- NOTE | 2024-07-24 15:34 | DVHPN2 ---
Assessment/Plan Assessment/Plan Progress note This is a 43-year-old female with past medical history of uterine fibroid recurrent pancreatitis (likely due to alcohol use disorder), came to the hospital due to abdominal pain since 4 day. Pain is localized on left upper quadrant radiating to the epigastric area, left lower quadrant and left shoulder, constant, 7/10, with no clear exacerbating or relieving factor. She also reports nausea, vomiting, shortness of breath, and constipation. She also reports heavy and painful menstruation, which started on 15 June and still has per vaginal bleeding with passing blood clots. She denies chest pain, constipation, diarrhea, or any recent sick contact. seen today during rounds, unable to tolerate oral, will add clinimix, NPO for now. GI physical exam aox3 clear breath sounds s1 s2 rrr no murmur abdomen soft, mildly tender no LE edema labs ekg imaging reviewed Assessment Acute intractable abdominal pain likely due to pancreatitis Acute pancreatitis likely alcohol induced Alcohol withdrawal syndrome Microcytic hypochromic anemia likely due to menorrhagia Iron-deficiency Menorrhagia likely due to uterine fibroid Transaminitis with a hepatomegaly and hepatic steatosis likely alcohol-induced Unspecified mood disorder Substance use disorder nightmares MDD? - IV fluids - 1 unit PRBCs given, H&H to be repeated and if HGB less than 7 another unit will be given - IV iron - on Librium for alcohol withdrawal - OBGYN consulted recommended doing a pelvic ultrasound and that the patient may benefit from uterine artery embolization - morphine for pain control - as per psych recommendation, patient started on prozac 20mg - tolerated clear liquid diet well and was advanced to soft diet start SSRI repeat ct diet npo dvt ppx ambulatory Plan discussed with: Patient Date of Service: Jul 24, 2024 Billing Provider: RITO MCNULTY MD Common Visit Codes: [id number] INP/OBS CARE(HIGH) RITO MCNULTY MD Jul 24, 2024 15:33
[2024-07-24] MEDS ORDERED: CLINIMIX PER PHARMACY 0 ML IV SCH (18:15)
[2024-07-24] MEDS: AMINO ACID INFUSION IN D10W 1,000 ML IV SCH (21:35)
[2024-07-25] VITALS (8 sets, daily range): BP systolic 101–124; BP diastolic 70–87; PULSE 66–112; RESP 15–20; TEMP 98–98.7; O2SAT 92–99
[2024-07-25 06:48] LABS: Basophils # (auto) 0.1 10 ^3/uL (0-0.2); Hemoglobin 9.5 g/dL (12.2-16.2); Neutrophils # (auto) 3.2 10 ^3/uL (1.6-8.6); Nucleated Red Blood Cells % 0.1 %; White Blood Cell 6.2 10^3/uL (4.4-10.8)
[2024-07-25 06:54] LABS: Basophils % (auto) 2.1 % (0.0-2.0); Eosinophils # (auto) 0.2 10 ^3/uL (0-0.8); Eosinophils % (auto) 3.7 % (0.0-7.0); Hematocrit 29.9 % (36.0-46.0); Lymphocytes # (auto) 1.7 10 ^3/uL (0.4-5.4); Lymphocytes % (auto) 27.1 % (10.0-50.0); Mean Corpuscular Hgb Conc. 31.9 g/dL (32.0-36.0); Mean Corpuscular Volume 78.2 fL (80.0-100.0); Monocytes # (auto) 0.9 10 ^3/uL (0-1.3); Monocytes % (auto) 15.1 % (0.0-12.0); Platelet Count (auto) 361 10^3/uL (140-450); Red Blood Cells 3.82 10^6/uL (4.0-5.20)
[2024-07-25 07:16] LABS: Red Cell Distribution Width 27.8 % (11.8-14.3)
[2024-07-25 07:35] LABS: Anion Gap 9 (5-15); Carbon Dioxide 25 mmol/L (20-31); Chloride 104 mmol/L (98-107); Sodium 138 mmol/L (136-145)
[2024-07-25 07:36] LABS: Calcium 9.4 mg/dL (8.7-10.4)
[2024-07-25 07:41] LABS: BUN/Creatinine Ratio 11.4 (10.0-20.0)
[2024-07-25 07:42] LABS: Magnesium 1.9 mg/dL (1.6-2.6)
[2024-07-25 07:43] LABS: Phosphorus 3.6 mg/dL (2.4-5.1)
[2024-07-25 07:44] LABS: Blood Urea Nitrogen 8 mg/dL (9-23); Glucose 107 mg/dL (74-106)
--- NOTE | 2024-07-25 08:40 | DVHPN2 ---
Assessment/Plan Assessment/Plan Progress note This is a 43-year-old female with past medical history of uterine fibroid recurrent pancreatitis (likely due to alcohol use disorder), came to the hospital due to abdominal pain since 4 day. Pain is localized on left upper quadrant radiating to the epigastric area, left lower quadrant and left shoulder, constant, 7/10, with no clear exacerbating or relieving factor. She also reports nausea, vomiting, shortness of breath, and constipation. She also reports heavy and painful menstruation, which started on 15 June and still has per vaginal bleeding with passing blood clots. She denies chest pain, constipation, diarrhea, or any recent sick contact. seen today during rounds, keep NPO, c/w clinimix physical exam aox3 clear breath sounds s1 s2 rrr no murmur abdomen soft, mildly tender no LE edema labs ekg imaging reviewed Assessment Acute intractable abdominal pain likely due to pancreatitis Acute pancreatitis likely alcohol induced Alcohol withdrawal syndrome Microcytic hypochromic anemia likely due to menorrhagia Iron-deficiency Menorrhagia likely due to uterine fibroid Transaminitis with a hepatomegaly and hepatic steatosis likely alcohol-induced Unspecified mood disorder Substance use disorder nightmares MDD? - IV fluids - 1 unit PRBCs given, H&H to be repeated and if HGB less than 7 another unit will be given - IV iron - on Librium for alcohol withdrawal - OBGYN consulted recommended doing a pelvic ultrasound and that the patient may benefit from uterine artery embolization - morphine for pain control - as per psych recommendation, patient started on prozac 20mg - tolerated clear liquid diet well and was advanced to soft diet start SSRI repeat ct diet npo dvt ppx ambulatory Plan discussed with: Patient My Orders Orders - RITO MCNULTY MD Procedure Category Date Status Time Clinimix Per Pharmacy [facility] 07/24/24 In Process 15:34 Npo (Nothing By DIET 07/24/24 Transmitted Mouth) Diet Dinner Clinimix Per Pharmacy PHA 07/24/24 In Process 18:15 Amino Acid Infusion PHA 07/24/24 In Process In D10w (Clinimix 4. 22:00 Clinimix Per Pharmacy [facility] 07/24/24 In Process 22:00 Magnesium Ander PHA 07/25/24 Transmitted 08:45 Basic Metabolic Panel LAB 07/26/24 Verified 04:00 Complete Blood Count LAB 07/26/24 Verified 04:00 Magnesium LAB 07/26/24 Verified 04:00 Phosphorus LAB 07/26/24 Verified 04:00 Lipase LAB 07/26/24 Verified 04:00 Date of Service: Jul 25, 2024 Billing Provider: RITO MCNULTY MD Common Visit Codes: [id number] INP/OBS CARE(HIGH) RITO MCNULTY MD Jul 25, 2024 08:39
[2024-07-25] MEDS ORDERED: DEXTROSE (50%) 50ML SYRG IV SCH (09:30)
[2024-07-25 10:48] LABS: Albumin 3.7 g/dL (3.2-4.8); Anion Gap 9 (5-15); BUN/Creatinine Ratio 11.9 (10.0-20.0); Calcium 9.2 mg/dL (8.7-10.4); Carbon Dioxide 24 mmol/L (20-31); Chloride 104 mmol/L (98-107); Potassium 3.9 mmol/L (3.5-5.1); Sodium 137 mmol/L (136-145); Total Protein 6.2 g/dL (5.7-8.2)
[2024-07-25 10:49] LABS: Bilirubin, Total 0.4 mg/dL (0.2-1.0)
[2024-07-25 10:52] LABS: Alanine Aminotransferase 112 U/L (7-40); Alkaline Phosphatase 133 U/L (46-116); Aspartate Aminotransferase 141 U/L (13-40); Blood Urea Nitrogen 8 mg/dL (9-23); Glucose 139 mg/dL (74-106)
[2024-07-25] MEDS: InsuLIN REG 1unit/0.01ml Soln (100units/ml) SC SCH (12:00)
[2024-07-25] MEDS: MAGNESIUM SULFATE 1GM/100ML 100 ML IV ONE (12:32)
[2024-07-25] MEDS: ACCU-CHEK COMFORT CURVE STRIP VI SCH (12:42)
[2024-07-26] VITALS (8 sets, daily range): BP systolic 102–121; BP diastolic 68–86; PULSE 69–101; RESP 18; TEMP 97.4–98.2; O2SAT 95–100
[2024-07-26 07:10] LABS: Basophils # (auto) 0.1 10 ^3/uL (0-0.2); Eosinophils # (auto) 0.2 10 ^3/uL (0-0.8); Hematocrit 31.5 % (36.0-46.0); Hemoglobin 9.7 g/dL (12.2-16.2); Mean Corpuscular Hemoglobin 24.4 pg (28.0-32.0); Monocytes # (auto) 0.9 10 ^3/uL (0-1.3); Nucleated Red Blood Cells % 0.1 %; Red Blood Cells 3.98 10^6/uL (4.0-5.20); White Blood Cell 7.6 10^3/uL (4.4-10.8)
[2024-07-26 07:12] LABS: Eosinophils % (auto) 2.9 % (0.0-7.0); Mean Corpuscular Hgb Conc. 30.8 g/dL (32.0-36.0); Mean Corpuscular Volume 79.2 fL (80.0-100.0); Monocytes % (auto) 12.4 % (0.0-12.0); Neutrophils # (auto) 4.2 10 ^3/uL (1.6-8.6); Neutrophils % (auto) 55.7 % (37.0-80.0); Platelet Count (auto) 385 10^3/uL (140-450); Red Cell Distribution Width 28.2 % (11.8-14.3)
[2024-07-26 07:19] LABS: Albumin 3.7 g/dL (3.2-4.8); Anion Gap 8 (5-15); BUN/Creatinine Ratio 12.9 (10.0-20.0); Bilirubin, Total 0.4 mg/dL (0.2-1.0); Blood Urea Nitrogen 9 mg/dL (9-23); Calcium 9.2 mg/dL (8.7-10.4); Carbon Dioxide 24 mmol/L (20-31); Chloride 102 mmol/L (98-107); Glucose 93 mg/dL (74-106); Lipase 28 U/L (12-53); Magnesium 2.1 mg/dL (1.6-2.6); Phosphorus 3.3 mg/dL (2.4-5.1); Potassium 3.9 mmol/L (3.5-5.1); Total Protein 6.3 g/dL (5.7-8.2)
[2024-07-26 07:23] LABS: Alanine Aminotransferase 91 U/L (7-40); Alkaline Phosphatase 126 U/L (46-116); Aspartate Aminotransferase 92 U/L (13-40); Sodium 134 mmol/L (136-145)
[2024-07-26 16:41] LABS: Triglycerides 63 mg/dL (< 150)
--- NOTE | 2024-07-26 20:10 | DVHPN2 ---
Assessment/Plan Assessment/Plan Progress note This is a 43-year-old female with past medical history of uterine fibroid recurrent pancreatitis (likely due to alcohol use disorder), came to the hospital due to abdominal pain since 4 day. Pain is localized on left upper quadrant radiating to the epigastric area, left lower quadrant and left shoulder, constant, 7/10, with no clear exacerbating or relieving factor. She also reports nausea, vomiting, shortness of breath, and constipation. She also reports heavy and painful menstruation, which started on 15 June and still has per vaginal bleeding with passing blood clots. She denies chest pain, constipation, diarrhea, or any recent sick contact. seen today during rounds, restart clear liquid, escalating diet physical exam aox3 clear breath sounds s1 s2 rrr no murmur abdomen soft, mildly tender no LE edema labs ekg imaging reviewed Assessment Acute intractable abdominal pain likely due to pancreatitis Acute pancreatitis likely alcohol induced Alcohol withdrawal syndrome Microcytic hypochromic anemia likely due to menorrhagia Iron-deficiency Menorrhagia likely due to uterine fibroid Transaminitis with a hepatomegaly and hepatic steatosis likely alcohol-induced Unspecified mood disorder Substance use disorder nightmares MDD? - IV fluids - 1 unit PRBCs given, H&H to be repeated and if HGB less than 7 another unit will be given - IV iron - on Librium for alcohol withdrawal - OBGYN consulted recommended doing a pelvic ultrasound and that the patient may benefit from uterine artery embolization - morphine for pain control - as per psych recommendation, patient started on prozac 20mg - tolerated clear liquid diet well and was advanced to soft diet start SSRI repeat ct diet full liq dvt ppx ambulatory Plan discussed with: Patient My Orders Orders - RITO MCNULTY MD Procedure Category Date Status Time Clear Liq Diet DIET 07/26/24 Transmitted Breakfast Full Liq Diet DIET 07/26/24 Transmitted Lunch Renal Function Test LAB 07/27/24 Verified 04:00 Magnesium LAB 07/27/24 Verified 04:00 Clinimix Per Pharmacy [facility] 07/26/24 In Process 22:00 Date of Service: Jul 26, 2024 Billing Provider: RITO MCNULTY MD Common Visit Codes: [id number] INP/OBS CARE(HIGH) RITO MCNULTY MD Jul 26, 2024 20:10
[2024-07-27] VITALS (8 sets, daily range): BP systolic 92–130; BP diastolic 51–73; PULSE 67–85; RESP 17–20; TEMP 98–98.7; O2SAT 97–100
[2024-07-27 07:15] LABS: Anion Gap 9 (5-15); Calcium 9.7 mg/dL (8.7-10.4); Chloride 104 mmol/L (98-107)
[2024-07-27 07:17] LABS: Calcium 9.4 mg/dL (8.7-10.4)
[2024-07-27 07:19] LABS: Sodium 136 mmol/L (136-145)
[2024-07-27 07:20] LABS: BUN/Creatinine Ratio 14.9 (10.0-20.0)
[2024-07-27 07:21] LABS: Magnesium 1.8 mg/dL (1.6-2.6)
[2024-07-27 07:22] LABS: BUN/Creatinine Ratio 13.7 (10.0-20.0); Blood Urea Nitrogen 10 mg/dL (9-23); Glucose 98 mg/dL (74-106)
[2024-07-27 07:23] LABS: Albumin 3.7 g/dL (3.2-4.8)
[2024-07-27 07:35] LABS: Carbon Dioxide 23 mmol/L (20-31)
--- NOTE | 2024-07-27 21:10 | DVHPN2 ---
Assessment/Plan Assessment/Plan Progress note This is a 43-year-old female with past medical history of uterine fibroid recurrent pancreatitis (likely due to alcohol use disorder), came to the hospital due to abdominal pain since 4 day. Pain is localized on left upper quadrant radiating to the epigastric area, left lower quadrant and left shoulder, constant, 7/10, with no clear exacerbating or relieving factor. She also reports nausea, vomiting, shortness of breath, and constipation. She also reports heavy and painful menstruation, which started on 15 June and still has per vaginal bleeding with passing blood clots. She denies chest pain, constipation, diarrhea, or any recent sick contact. seen today during rounds, tolerating full liquid. dc clinimix, dispo plan tomorrow physical exam aox3 clear breath sounds s1 s2 rrr no murmur abdomen soft, mildly tender no LE edema labs ekg imaging reviewed Assessment Acute intractable abdominal pain likely due to pancreatitis Acute pancreatitis likely alcohol induced Alcohol withdrawal syndrome Microcytic hypochromic anemia likely due to menorrhagia Iron-deficiency Menorrhagia likely due to uterine fibroid Transaminitis with a hepatomegaly and hepatic steatosis likely alcohol-induced Unspecified mood disorder Substance use disorder nightmares MDD? - IV fluids - 1 unit PRBCs given, H&H to be repeated and if HGB less than 7 another unit will be given - IV iron - on Librium for alcohol withdrawal - OBGYN consulted recommended doing a pelvic ultrasound and that the patient may benefit from uterine artery embolization - morphine for pain control - as per psych recommendation, patient started on prozac 20mg - tolerated clear liquid diet well and was advanced to soft diet start SSRI repeat ct diet full liq dvt ppx ambulatory Plan discussed with: Patient My Orders Orders - RITO MCNULTY MD Procedure Category Date Status Time Clinimix Per Pharmacy [facility] 07/27/24 In Process 22:00 Comprehensive LAB 07/28/24 Verified Metabolic Panel 05:00 Phosphorus LAB 07/28/24 Verified 05:00 Magnesium LAB 07/28/24 Verified 05:00 Date of Service: Jul 27, 2024 Billing Provider: RITO MCNULTY MD Common Visit Codes: [id number] INP/OBS CARE(HIGH) RITO MCNULTY MD Jul 27, 2024 21:10
[2024-07-28 01:00] VITALS: BP 102/62; PULSE 72; RESP 18; TEMP 97.7; O2SAT 96
[2024-07-28 05:00] VITALS: BP 105/69; PULSE 77; RESP 18; TEMP 97.3; O2SAT 97
[2024-07-28 06:19] LABS: Anion Gap 8 (5-15); BUN/Creatinine Ratio 13.3 (10.0-20.0); Blood Urea Nitrogen 10 mg/dL (9-23); Calcium 9.3 mg/dL (8.7-10.4); Carbon Dioxide 23 mmol/L (20-31); Chloride 106 mmol/L (98-107); Magnesium 1.9 mg/dL (1.6-2.6); Sodium 137 mmol/L (136-145); Total Protein 6.3 g/dL (5.7-8.2)
[2024-07-28 06:20] LABS: Alanine Aminotransferase 97 U/L (7-40); Albumin 3.7 g/dL (3.2-4.8); Alkaline Phosphatase 136 U/L (46-116); Aspartate Aminotransferase 117 U/L (13-40); Bilirubin, Total 0.4 mg/dL (0.2-1.0); Glucose 107 mg/dL (74-106); Phosphorus 4.3 mg/dL (2.4-5.1)
[2024-07-28 09:00] VITALS: BP 97/65; PULSE 62; RESP 18; TEMP 97.8; O2SAT 97
[2024-07-28 13:00] VITALS: BP 115/76; PULSE 60; RESP 18; TEMP 98.6; O2SAT 95
[2024-07-28 16:45] VITALS: BP 110/76; PULSE 59; RESP 17; TEMP 98.7; O2SAT 97
--- NOTE | 2024-07-28 18:27 | DVHPN2 ---
Assessment/Plan Assessment/Plan Progress note This is a 43-year-old female with past medical history of uterine fibroid recurrent pancreatitis (likely due to alcohol use disorder), came to the hospital due to abdominal pain since 4 day. Pain is localized on left upper quadrant radiating to the epigastric area, left lower quadrant and left shoulder, constant, 7/10, with no clear exacerbating or relieving factor. She also reports nausea, vomiting, shortness of breath, and constipation. She also reports heavy and painful menstruation, which started on 15 June and still has per vaginal bleeding with passing blood clots. She denies chest pain, constipation, diarrhea, or any recent sick contact. seen today during rounds, still vomiting, abd pain improved, will change zofran to reglan, get EKG, dc clinimix, dispo to rehab on tuesday physical exam aox3 clear breath sounds s1 s2 rrr no murmur abdomen soft, mildly tender no LE edema labs ekg imaging reviewed Assessment Acute intractable abdominal pain likely due to pancreatitis Acute pancreatitis likely alcohol induced Alcohol withdrawal syndrome Microcytic hypochromic anemia likely due to menorrhagia Iron-deficiency Menorrhagia likely due to uterine fibroid Transaminitis with a hepatomegaly and hepatic steatosis likely alcohol-induced Unspecified mood disorder Substance use disorder nightmares MDD? - IV fluids - 1 unit PRBCs given, H&H to be repeated and if HGB less than 7 another unit will be given - IV iron - on Librium for alcohol withdrawal - OBGYN consulted recommended doing a pelvic ultrasound and that the patient may benefit from uterine artery embolization - morphine for pain control - as per psych recommendation, patient started on prozac 20mg - tolerated clear liquid diet well and was advanced to soft diet start SSRI repeat ct diet full liq dvt ppx ambulatory Plan discussed with: Patient My Orders Orders - RITO MCNULTY MD Procedure Category Date Status Time Comprehensive LAB 07/29/24 Verified Metabolic Panel 04:00 Magnesium LAB 07/29/24 Verified 04:00 Phosphorus LAB 07/29/24 Verified 04:00 Clinimix Per Pharmacy [facility] 07/28/24 In Process 22:00 Date of Service: Jul 28, 2024 Billing Provider: RITO MCNULTY MD Common Visit Codes: [id number] INP/OBS CARE(MOD) RITO MCNULTY MD Jul 28, 2024 18:27
[2024-07-28] MEDS: SENNA 8.6 MG TAB PO ONE (18:55)
[2024-07-28 21:00] VITALS: BP 100/63; PULSE 63; RESP 19; TEMP 98.2; O2SAT 98
[2024-07-28] MEDS: MAALOX PLUS or MAALOX 30 ML PO SCH (23:59)
[2024-07-28] MEDS: METOCLOPRAMIDE 10 mg/10ml ORAL soln PO SCH (23:59)
[2024-07-29 05:00] VITALS: BP 103/62; PULSE 64; RESP 16; TEMP 97.9; O2SAT 97
[2024-07-29 06:04] LABS: Albumin 3.7 g/dL (3.2-4.8); Anion Gap 9 (5-15); BUN/Creatinine Ratio 8.5 (10.0-20.0); Calcium 9.4 mg/dL (8.7-10.4); Carbon Dioxide 22 mmol/L (20-31); Glucose 100 mg/dL (74-106); Magnesium 1.9 mg/dL (1.6-2.6); Potassium 3.9 mmol/L (3.5-5.1); Sodium 138 mmol/L (136-145); Total Protein 6.2 g/dL (5.7-8.2)
[2024-07-29 06:05] LABS: Bilirubin, Total 0.4 mg/dL (0.2-1.0); Phosphorus 4.4 mg/dL (2.4-5.1)
[2024-07-29 07:03] LABS: Alanine Aminotransferase 123 U/L (7-40); Alkaline Phosphatase 131 U/L (46-116); Aspartate Aminotransferase 162 U/L (13-40); Blood Urea Nitrogen 6 mg/dL (9-23); Chloride 107 mmol/L (98-107)
[2024-07-29 09:00] VITALS: BP 108/66; PULSE 67; RESP 18; TEMP 97.9; O2SAT 96
[2024-07-29] MEDS: ONDANSETRON HCL 4 MG/2 ML VIAL IV PRN (12:48)
[2024-07-29] MEDS: HYDROcodone-ACET 5/325MG TAB PO PRN (12:49)
[2024-07-29 13:00] VITALS: BP 112/76; PULSE 72; RESP 18; TEMP 97.8; O2SAT 95
--- NOTE | 2024-07-29 14:31 | DVHPN2 ---
Assessment/Plan Assessment/Plan Progress note This is a 43-year-old female with past medical history of uterine fibroid recurrent pancreatitis (likely due to alcohol use disorder), came to the hospital due to abdominal pain since 4 day. Pain is localized on left upper quadrant radiating to the epigastric area, left lower quadrant and left shoulder, constant, 7/10, with no clear exacerbating or relieving factor. She also reports nausea, vomiting, shortness of breath, and constipation. She also reports heavy and painful menstruation, which started on 15 June and still has per vaginal bleeding with passing blood clots. She denies chest pain, constipation, diarrhea, or any recent sick contact. seen today during rounds, still vomiting, abd pain improved, switch back to zofran, dc clinimix, dispo to rehab on tuesday physical exam aox3 clear breath sounds s1 s2 rrr no murmur abdomen soft, mildly tender no LE edema labs ekg imaging reviewed Assessment Acute intractable abdominal pain likely due to pancreatitis Acute pancreatitis likely alcohol induced Alcohol withdrawal syndrome Microcytic hypochromic anemia likely due to menorrhagia Iron-deficiency Menorrhagia likely due to uterine fibroid Transaminitis with a hepatomegaly and hepatic steatosis likely alcohol-induced Unspecified mood disorder Substance use disorder nightmares MDD? - IV fluids - 1 unit PRBCs given, H&H to be repeated and if HGB less than 7 another unit will be given - IV iron - on Librium for alcohol withdrawal - OBGYN consulted recommended doing a pelvic ultrasound and that the patient may benefit from uterine artery embolization - morphine for pain control - as per psych recommendation, patient started on prozac 20mg - tolerated clear liquid diet well and was advanced to soft diet start SSRI repeat ct diet full liq dvt ppx ambulatory Plan discussed with: Patient My Orders Orders - RITO MCNULTY MD Procedure Category Date Status Time Alum & Mag PHA 07/29/24 In Process Hydrox-Simethicone 00:00 Ondansetron Hcl PHA 07/29/24 In Process (Zofran) 12:00 Hydrocodone-Acet PHA 07/29/24 In Process 5/325mg Tab ([place] 12:00 Date of Service: Jul 29, 2024 Billing Provider: RITO MCNULTY MD Common Visit Codes: [id number] INP/OBS CARE(HIGH) RITO MCNULTY MD Jul 29, 2024 14:31
[2024-07-29 17:00] VITALS: BP 110/75; PULSE 81; RESP 18; TEMP 97.8; O2SAT 95
[2024-07-29 20:00] VITALS: PULSE 72; RESP 16; O2SAT 97
[2024-07-29 21:00] VITALS: BP 100/68; PULSE 72; RESP 16; TEMP 97.8; O2SAT 97
[2024-07-30] VITALS (8 sets, daily range): BP systolic 101–129; BP diastolic 66–80; PULSE 58–102; RESP 16–20; TEMP 97.8–98.6; O2SAT 95–98
[2024-07-30] MEDS ORDERED: PANT40TA2 PO (09:34)
[2024-07-30] MEDS ORDERED: ZOFR4T PO (09:34)
[2024-07-30] MEDS ORDERED: ALUMSUS16 PO (09:34)
--- NOTE | 2024-07-30 15:30 | DVH ---
INDICATION: n/v/elevated lfts TECHNIQUE: Multiple real-time sonographic images were obtained of the right upper quadrant. COMPARISON: None FINDINGS: The liver demonstrates heterogeneous echotexture without focal mass lesions. The liver zulema ures 16cm. There is no intrahepatic or extrahepatic ductal dilatation. The common duct measures 0. 4 mm. The gallbladder is without evidence of stone or sludge. The gallbladder wall measures 0.3 mm and is within normal limits. The right kidney measures 11 cm. The right kidney is normal in contour, size, and shape. The echogen icity is normal. There is no hydronephrosis. The pancreas is not well visualized due to overlying bowel gas. IMPRESSION: No sonographic evidence of gallstones or acute cholecystitis. Hepatic steatosis
--- NOTE | 2024-07-30 16:25 | DVHPN2 ---
Assessment/Plan Assessment/Plan Progress note This is a 43-year-old female with past medical history of uterine fibroid recurrent pancreatitis (likely due to alcohol use disorder), came to the hospital due to abdominal pain since 4 day. Pain is localized on left upper quadrant radiating to the epigastric area, left lower quadrant and left shoulder, constant, 7/10, with no clear exacerbating or relieving factor. She also reports nausea, vomiting, shortness of breath, and constipation. She also reports heavy and painful menstruation, which started on 15 June and still has per vaginal bleeding with passing blood clots. She denies chest pain, constipation, diarrhea, or any recent sick contact. seen today during rounds, still vomiting, GI consult placed. plan for EGD physical exam aox3 clear breath sounds s1 s2 rrr no murmur abdomen soft, mildly tender no LE edema labs ekg imaging reviewed Assessment Acute intractable abdominal pain likely due to pancreatitis Acute pancreatitis likely alcohol induced Alcohol withdrawal syndrome Microcytic hypochromic anemia likely due to menorrhagia Iron-deficiency Menorrhagia likely due to uterine fibroid Transaminitis with a hepatomegaly and hepatic steatosis likely alcohol-induced Unspecified mood disorder Substance use disorder nightmares MDD? - IV fluids - 1 unit PRBCs given, H&H to be repeated and if HGB less than 7 another unit will be given - IV iron - on Librium for alcohol withdrawal - OBGYN consulted recommended doing a pelvic ultrasound and that the patient may benefit from uterine artery embolization - morphine for pain control - as per psych recommendation, patient started on prozac 20mg - tolerated clear liquid diet well and was advanced to soft diet start SSRI repeat ct diet full liq dvt ppx ambulatory Plan discussed with: Patient My Orders Orders - RITO MCNULTY MD Procedure Category Date Status Time Discharge DISCHARGE 07/30/24 Transmitted 09:34 * [facility] [employer] CONS 07/30/24 Transmitted 14:30 Date of Service: Jul 30, 2024 Billing Provider: RITO MCNULTY MD Common Visit Codes: [id number] INP/OBS CARE(HIGH) RITO MCNULTY MD Jul 30, 2024 16:25
--- NOTE | 2024-07-30 21:59 | DVHINCON2 ---
Date of service: Jul 30, [address] Mcnulty Reason for Consultation Recurrent nausea vomiting History of Present Illness This is a 43-year-old female admitted due to ongoing abdominal pain for four days. Pain is localized on left upper quadrant radiating to the epigastric area, left lower quadrant and left shoulder, constant, 7/10, with no clear exacerbating or relieving factor. She also reports nausea, vomiting, shortness of breath, and constipation. She denies chest pain, diarrhea, or any recent sick contact. Past Medical History Uterine fibroid With metromenorrhagia Recurrent pancreatitis (likely due to alcohol use disorder) Meth amphetamine use Family History: Asthma Allergies: Coded Allergies: NO KNOWN ALLERGIES (Unverified , 11/04/09) Home Meds Active Scripts Ondansetron Odt 4MG Tab (ZOFRAN PO) 4 Mg Tb, 4 MG PO Q8H PRN for 30 Days, #90 TAB ODT TAB-DISSOLVE IN MOUTH, THEN SWALLOW Prov:RITO MCNULTY MD 07/30/24 Alum & Mag Hydrox-Simethicone (Maalox Multi Symptom Maxi) Symp Max Brittnee, 1 MAX PO Q6HP PRN for 30 Days, #1200 ML Prov:RITO MCNULTY MD 07/30/24 Pantoprazole Sodium Sesquihydr (Protonix) 40 Mg Tab, 40 MG PO DAILY for 30 Days, #30 TAB Prov:RITO MCNULTY MD 07/30/24 Tramadol HCl (Tramadol HCl) 50 Mg Tab, 50 MG PO Q8HP PRN for 3 Days, #9 TAB Prov:RITO MCNULTY MD 07/21/24 Fluoxetine HCl (Fluoxetine HCl) 20 Mg Cap, 20 MG PO DAILY for 30 Days, #30 CAP Prov:RITO MCNULTY MD 07/21/24 Vital Signs Vital Signs Date Time Temp Pulse Resp B/P (MAP) Pulse Ox O2 Delivery O2 Flow Rate FiO2 07/30/24 17:00 98.6 71 20 113/74 (87) 98 98.6 07/30/24 08:00 Room Air* 0 21 Physical Exam aox3 clear breath sounds s1 s2 rrr no murmur abdomen soft, mildly tender no LE edema Labs/Diagnostic Data Labs Test 07/30/24 15:00 07/29/24 17:03 07/29/24 05:23 07/27/24 05:17 Range/Units Lipase 33 12-53 U/L POC Glucose 110 H 70-106 mg/dl Sodium Level 138 136-145 mmol/L Potassium Level 3.9 3.5-5.1 mmol/L Chloride Level 107 98-107 mmol/L Carbon Dioxide Level 22 20-31 mmol/L Anion Gap 9 5-15 Blood Urea Nitrogen 6 L 9-23 mg/dL Creatinine 0.71 0.550-1.02 mg/dL Glomerular Filtration Rate Calc 108 >90 mL/min BUN/Creatinine Ratio 8.5 L 10.0-20.0 Serum Glucose 100 74-106 mg/dL Calcium Level 9.4 8.7-10.4 mg/dL Phosphorus Level 4.4 2.4-5.1 mg/dL Magnesium Level 1.9 1.6-2.6 mg/dL Total Bilirubin 0.4 0.2-1.0 mg/dL Aspartate Amino Transferase (AST) 162 H 13-40 U/L Alanine Aminotransferase (ALT) 123 H 7-40 U/L Alkaline Phosphatase 131 H 46-116 U/L Total Protein 6.2 5.7-8.2 g/dL Albumin 3.7 3.2-4.8 g/dL Estimated GFR () 110 mL/min Estimated GFR (Non- 91 mL/min Test 07/26/24 05:12 07/23/24 05:28 07/18/24 08:25 07/18/24 05:13 Range/Units White Blood Count 7.6 4.4-10.8 10^3/uL Red Blood Count 3.98 L 4.0-5.20 10^6/uL Hemoglobin 9.7 L 12.2-16.2 g/dL Hematocrit 31.5 L 36.0-46.0 % Mean Corpuscular Volume 79.2 L 80.0-100.0 fL Mean Corpuscular Hemoglobin 24.4 L 28.0-32.0 pg Mean Corpuscular Hemoglobin Concent 30.8 L 32.0-36.0 g/dL Red Cell Distribution Width 28.2 H 11.8-14.3 % Platelet Count 385 140-450 10^3/uL Mean Platelet Volume 9.8 6.9-10.8 fL Neutrophils (%) (Auto) 55.7 37.0-80.0 % Lymphocytes (%) (Auto) 27.0 10.0-50.0 % Monocytes (%) (Auto) 12.4 H 0.0-12.0 % Eosinophils (%) (Auto) 2.9 0.0-7.0 % Basophils (%) (Auto) 2.0 0.0-2.0 % Neutrophils # (Auto) 4.2 1.6-8.6 10 ^3/uL Lymphocytes # (Auto) 2.0 0.4-5.4 10 ^3/uL Monocytes # (Auto) 0.9 0-1.3 10 ^3/uL Eosinophils # (Auto) 0.2 0-0.8 10 ^3/uL Basophils # (Auto) 0.1 0-0.2 10 ^3/uL Nucleated Red Blood Cells 0.1 % Triglycerides Level 63 < 150 mg/dL Platelet Estimate Adequate Hypochromasia (manual) Slight Anisocytosis (manual) Moderate Microcytosis Slight Prothrombin Time 11.1 9.3-11.8 sec Prothrombin Time INR 1.05 0.9-1.15 Activated Partial Thromboplast Time 23.6 L 24.5-34.5 SEC Clumped Platelets Test 07/17/24 06:30 07/17/24 02:58 07/17/24 00:00 07/16/24 14:47 Range/Units Lactic Acid Level 0.7 0.4-2.0 mmol/L Hepatitis B Surface Antibody Negative Negative Hepatitis C Antibody Negative Negative D-Dimer, Quantitative 0.51 H 0.0-0.49 mg/L FEU Hemoglobin A1c < 3.8 <5.7 % A1C Iron Level 27 L 50-170 ug/dL Total Iron Binding Capacity 273 250-425 ug/dL Percent Iron Saturation 9.9 L 15-50 % Ferritin 25.3 10-291 ng/mL Cholesterol Level 158 < 200 mg/dL LDL Cholesterol 90 < 100 mg/dL HDL Cholesterol 57 40-59 mg/dL Vitamin B12 Level 933 H 211-911 pg/mL Folic Acid 6.25 >5.38 ng/mL Thyroid Stimulating Hormone (TSH) 2.16 0.55-4.78 uIU/mL Plasma/Serum Blood Alcohol < 3.0 <10 mg/dL Troponin I High Sensitivity < 3 L </=34 ng/L Test 07/16/24 14:14 Range/Units Urine Color Yellow Yellow Urine Clarity Turbid H Clear Urine pH 5.5 5.0-9.0 Urine Specific [place] 1.025 1.001-1.035 Urine Protein 1+ H Negative Urine Ketones 4+ H Negative Urine Blood 3+ H Negative /uL Urine Nitrite Negative Negative Urine Bilirubin Negative Negative Urine Urobilinogen 3 H Negative mg/dL Urine Leukocyte Esterase Negative Negative /uL Urine RBC 373 0 - 4 /hpf Urine Microscopic WBC 5 0-5 /HPF Urine Squamous Epithelial Cells Few <5 /hpf Urine Bacteria Few H None Seen /hpf Urine Hyaline Casts Mod 0 - 2 /lpf Urine Mucus Few None Seen Urine Glucose Normal Normal mg/dL Urine Opiates Screen Neg NEGATIVE Urine Fentanyl Screen Neg NEGATIVE Urine Barbiturates Screen Neg NEGATIVE Urine Phencyclidine Screen Neg NEGATIVE Urine Amphetamines Screen Pos NEGATIVE Urine Benzodiazepines Screen Neg NEGATIVE Urine Cocaine Screen Neg NEGATIVE Urine Cannabinoids Screen Neg NEGATIVE Microbiology Date/Time Source Procedure Growth Status 07/17/24 23:12 Nose MRSA Screen - Final Complete 07/16/24 14:14 Voided Urine Urine Culture - Final Complete Abdominal Ultrasound IMPRESSION: No sonographic evidence of gallstones or acute cholecystitis. CT ABD negative Hepatic steatosis Problems(with codes): (1) Anemia (2) Microcytic anemia (3) Elevated liver enzymes (4) Acute pancreatitis Plan/Recommendation Plan IV Protonix 40 mg daily Zofran 4 mg IV q.6 hours as needed for nausea and vomiting I will schedule this patient for an endoscopy tomorrow to rule out peptic ulcer disease rule out GERD I will order an RIMA and ferritin for further evaluation of chronic transaminitis Ultrasound suggestive of fatty liver Monitor labs Clear liquid diet today Plan discussed with: Other (Dr Mcnulty) BROCK BENAVIDES MD Jul 30, 2024 21:59
[2024-07-31] VITALS (9 sets, daily range): BP systolic 110–126; BP diastolic 61–86; PULSE 60–80; RESP 16–20; TEMP 97.9–98; O2SAT 94–99
[2024-07-31 09:25] LABS: Eosinophils # (auto) 0.2 10 ^3/uL (0-0.8); Hemoglobin 10.4 g/dL (12.2-16.2); Monocytes # (auto) 0.6 10 ^3/uL (0-1.3); Red Blood Cells 4.07 10^6/uL (4.0-5.20); Red Cell Distribution Width 27.4 % (11.8-14.3)
[2024-07-31 09:27] LABS: Basophils # (auto) 0.2 10 ^3/uL (0-0.2); Basophils % (auto) 2.1 % (0.0-2.0); Eosinophils % (auto) 2.9 % (0.0-7.0); Hematocrit 32.4 % (36.0-46.0); Lymphocytes % (auto) 24.9 % (10.0-50.0); Mean Corpuscular Hemoglobin 25.4 pg (28.0-32.0); Mean Corpuscular Volume 79.5 fL (80.0-100.0); Neutrophils # (auto) 5.1 10 ^3/uL (1.6-8.6); Neutrophils % (auto) 63.1 % (37.0-80.0); Platelet Count (auto) 432 10^3/uL (140-450); White Blood Cell 8.2 10^3/uL (4.4-10.8)
[2024-07-31] MEDS: MORPHINE SULFATE INJ 2 MG/ml SYRG IV ONE (10:11)
[2024-07-31] MEDS ORDERED: SODIUM CHLORIDE LOCK 10 ML ONE (12:13)
[2024-07-31] MEDS ORDERED: FLUMAZENIL 0.1 MG/ML INJ 10ML MDV IV ONE (12:16)
[2024-07-31] MEDS ORDERED: NALOXONE HCL 0.4 MG/ML VIAL ONE (12:16)
[2024-07-31] MEDS: LIDOCAINE VISCOUS 2% 15ML UD ONE (13:26)
[2024-07-31] MEDS: LIDOCAINE VISCOUS 2% 15ML UD MT ONE (13:26)
[2024-07-31] MEDS: diphenhdrAMINE HCL 50 MG/1 ML VL ONE (13:27)
[2024-07-31] MEDS: fentaNYL CITRATE 100 MCG/2 ML VL ONE (13:27)
[2024-07-31] MEDS: MIDAZOLAM HCL 5 MG/ML-1ML VIAL ONE (13:27)
--- NOTE | 2024-07-31 13:41 | DVHOP2 ---
Operative Report DATE OF OPERATION: 07/31/24 PROCEDURE: Upper Endoscopy with biopsy. PREOPERATIVE INDICATION: The patient is a 44 -year-old female undergoing endoscopy for recurrent nausea vomiting and abdominal pain POSTOPERATIVE DIAGNOSES: 1. 1 cm sliding-type hiatal hernia with irregular squamocolumnar junction and g rade a erosive esophagitis 2. Ipoq-yr-pjobkhyn gastritis involving the antrum and body of the stomach from which biopsies were obtained 3. There were some retained food skin debris in the stomach 4. Otherwise completely normal endoscopic examination up to the 3rd part of the duodenum PROCEDURE PERFORMED BY: Brock Paz GI NURSE: Nathalie SCOPE: Olympus videoendoscope. ASA CLASS: 2 PREOPERATIVE MEDICATIONS: Versed 5 mg, Fentanyl 100 mcg, Benadryl 50 mg I administered moderate sedation throughout this _9_ minutes procedure. An independent trained observer pushed medications at my direction, and monitored the patient's level of consciousness and physiological status throughout. PROCEDURE IN DETAIL: After obtaining an informed consent, the patient was placed on left lateral decubitus position. The patient was then sedated with the above medications. A bite block was placed between her teeth. The endoscope was then passed through the oropharynx, into the esophagus, and through the stomach and pylorus up to the second and third part of the duodenum. The endoscope was then withdrawn. The 2nd and 3rd part of the duodenum and the duodenal bulb were normal. Duodenal biopsies were obtained. The pre-pyloric area antrum and body of the stomach showed mild gastritis with some hyperemia erythema. Gastric biopsies were obtained. On retroflexion the fundus cardia and angularis were normal. There was some residual food skin debris in the stomach The endoscope was then withdrawn into the distal esophagus where she had a 1-2 cm sliding-type hiatal hernia with slightly irregular squamocolumnar junction There was grade a erosive esophagitis and GE junction biopsies were obtained. The remaining distal and proximal esophagus and oropharynx were unremarkable The patient tolerated the procedure well without difficulty. COMPLICATIONS : None SPECIMENS: Duodenal biopsies Gastric biopsies GE junction biopsies DISPOSITION: Transfer back to the floor Stable PLAN: 1. Await for biopsy result 2. Will place pt on Protonix 40 mg p.o. daily 3. Carafate suspension 1 g p.o. 4 times a day 4. Reglan 5 mg p.o. q.8 hours as needed for nausea vomiting 5. Outpatient follow up with me in 4-6 weeks to review results and discuss further management 6. Resume soft mechanical diet advance as tolerated 7. Patient stated she had a colonoscopy about a year ago in [place] which was negative BROCK PAZ MD Jul 31, 2024 13:41
[2024-07-31] MEDS: METOCLOPRAMIDE HCL 5MG/ml INJ 2ml VIAL IV SCH (14:50)
[2024-07-31 15:24] LABS: Albumin 3.8 g/dL (3.2-4.8); Bilirubin, Direct 0.2 mg/dL (<0.3); Bilirubin, Total 0.4 mg/dL (0.2-1.0); Total Protein 6.4 g/dL (5.7-8.2)
--- NOTE | 2024-07-31 15:56 | DVHPN2 ---
Assessment/Plan Assessment/Plan Progress note This is a 43-year-old female with past medical history of uterine fibroid recurrent pancreatitis (likely due to alcohol use disorder), came to the hospital due to abdominal pain since 4 day. Pain is localized on left upper quadrant radiating to the epigastric area, left lower quadrant and left shoulder, constant, 7/10, with no clear exacerbating or relieving factor. She also reports nausea, vomiting, shortness of breath, and constipation. She also reports heavy and painful menstruation, which started on 15 June and still has per vaginal bleeding with passing blood clots. She denies chest pain, constipation, diarrhea, or any recent sick contact. seen today during rounds, EGD done, gastritis, started on carafate, per GI cleared to eat soft. patient to go to rehab tomorrow. physical exam aox3 clear breath sounds s1 s2 rrr no murmur abdomen soft, mildly tender no LE edema labs ekg imaging reviewed Assessment Acute intractable abdominal pain likely due to pancreatitis Acute pancreatitis likely alcohol induced Alcohol withdrawal syndrome Microcytic hypochromic anemia likely due to menorrhagia Iron-deficiency Menorrhagia likely due to uterine fibroid Transaminitis with a hepatomegaly and hepatic steatosis likely alcohol-induced Unspecified mood disorder Substance use disorder nightmares MDD? gastritis - IV fluids - 1 unit PRBCs given, H&H to be repeated and if HGB less than 7 another unit will be given - IV iron - on Librium for alcohol withdrawal - OBGYN consulted recommended doing a pelvic ultrasound and that the patient may benefit from uterine artery embolization - morphine for pain control - as per psych recommendation, patient started on prozac 20mg - tolerated clear liquid diet well and was advanced to soft diet start SSRI repeat ct diet full liq dvt ppx ambulatory Plan discussed with: Patient Date of Service: Jul 31, 2024 Billing Provider: RITO MCNULTY MD Common Visit Codes: [id number] INP/OBS CARE(MOD) RITO MCNULTY MD Jul 31, 2024 15:56
[2024-07-31] MEDS ORDERED: SUCR1SUS26 PO (15:57)
[2024-07-31] MEDS: SUCRALFATE 1 GM/10 ML ORAL SUSP PO SCH (17:15)
[2024-07-31] MEDS: HYDROcodone-ACET 7.5/325MG TAB PO PRN (20:36)
[2024-08-01] VITALS (7 sets, daily range): BP systolic 98–109; BP diastolic 55–70; PULSE 61–71; RESP 16–20; TEMP 36.8; O2SAT 93–98
--- NOTE | 2024-08-01 13:59 | DVHPN2 ---
Progress Note - Dictate Date Seen: Aug 01, 2024 Medical Necessity Reason Pt with a Central, PICC or Fol: No Subjective Pt doing better Tolerating diet now She had mild postptandial pain last night EGD showed gastritis Mild persistent elevation in liver tests vital signs Vital Sign Date Time Temp Pulse Resp B/P (MAP) Pulse Ox O2 Delivery O2 Flow Rate FiO2 08/01/24 13:00 98.3 71 18 103/70 (81) 93 98.3 08/01/24 08:00 Room Air* 0 21 Total Intake and Output 07/31/24 07/31/24 08/01/24 15:00 23:00 07:00 Intake Total 10 ml 240 ml 350 ml Balance 10 ml 240 ml 350 ml medications Current Medications Medications Dose Ordered Sig/Lashawn Route Start Time Stop Time Status Last Admin Dose Admin Pantoprazole Sodium 40 mg DAILY IV 07/17/24 10:00 07/31/24 10:09 40 MG Fluoxetine HCl 20 mg DAILY PO 07/21/24 10:00 07/31/24 10:09 20 MG Al Hydrox/Mg Hydrox/Simethicone 30 ml Q6HR PO 07/29/24 00:00 08/01/24 13:03 30 ML Ondansetron HCl 4 mg Q6HPRN PRN IV 07/29/24 12:00 08/01/24 10:15 4 MG Sucralfate 1 gm QID@0600,1130,1700,2200 PO 07/31/24 17:00 08/01/24 10:15 1 GM Metoclopramide HCl 5 mg Q8HR IV 07/31/24 14:00 08/01/24 13:17 5 MG Acetaminophen/ Hydrocodone Bitart 1 tab Q6HP PRN PO 07/31/24 20:15 08/01/24 10:16 1 TAB objective aox3 clear breath sounds s1 s2 rrr no murmur abdomen soft, non tender no LE edema laboratory and microbiology Laboratory Tests 07/31/24 08:24 07/29/24 05:23 Test 07/29/24 05:23 Range/Units Serum Glucose 100 74-106 mg/dL Problems(with codes): (1) Elevated liver enzymes (2) Microcytic anemia (3) Anemia (4) Acute pancreatitis (5) Dehydration Prognosis PLAN Pt likely has pain from chronic pancreatitis and gastritis; continue PPI and Carafate She could also have underlying 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 chronic ETOH pancreatitis which could explain the elevation in liver enzymes Discharge planning is in progress ; patient currently tolerating a soft diet, pain is controlled with [place] Patient was given my contact information to follow up in my office ; patient has been counseled about discontinuing alcohol and smoking We can give her a trial of pancreatic enzyme supplements to see if that will help with her chronic pancreatitis and pain Patient will also be seen in my office for a follow up to see if she needs referral for EUS and sphncter of Oddi manometry Dietary Evaluation Review Comments: Encourage to enrole in an alcoholic rebab program, follow a low fat high protei diet,avoid sugar and fat, Expected Outcomes/Goals: improved nutrition parameters Plan discussed with: Patient CC Plasma Assessment Blood Product Administration S: [id number] BROCK BENAVIDES MD Aug 01, 2024 13:59
--- NOTE | 2024-08-01 15:18 | DVHDS2 ---
Discharge Summary Date of Admission Jul 16, 2024 at 23:44 Date of Discharge: Jul 21, 2024 Labs/Diagnostic Data: Laboratory Results Test 07/31/24 14:57 07/31/24 08:24 07/30/24 15:00 07/29/24 17:03 Total Bilirubin 0.4 mg/dL (0.2-1.0) Direct Bilirubin 0.2 mg/dL (<0.3) Aspartate Amino Transferase (AST) 119 U/L (13-40) Alanine Aminotransferase (ALT) 121 U/L (7-40) Alkaline Phosphatase 140 U/L (46-116) Total Protein 6.4 g/dL (5.7-8.2) Albumin 3.8 g/dL (3.2-4.8) Anti-Nuclear Antibody Screen Negative (Negative) White Blood Count 8.2 10^3/uL (4.4-10.8) Red Blood Count 4.07 10^6/uL (4.0-5.20) Hemoglobin 10.4 g/dL (12.2-16.2) Hematocrit 32.4 % (36.0-46.0) Mean Corpuscular Volume 79.5 fL (80.0-100.0) Mean Corpuscular Hemoglobin 25.4 pg (28.0-32.0) Mean Corpuscular Hemoglobin Concent 32.0 g/dL (32.0-36.0) Red Cell Distribution Width 27.4 % (11.8-14.3) Platelet Count 432 10^3/uL (140-450) Mean Platelet Volume 9.8 fL (6.9-10.8) Neutrophils (%) (Auto) 63.1 % (37.0-80.0) Lymphocytes (%) (Auto) 24.9 % (10.0-50.0) Monocytes (%) (Auto) 7.0 % (0.0-12.0) Eosinophils (%) (Auto) 2.9 % (0.0-7.0) Basophils (%) (Auto) 2.1 % (0.0-2.0) Neutrophils # (Auto) 5.1 10 ^3/uL (1.6-8.6) Lymphocytes # (Auto) 2.0 10 ^3/uL (0.4-5.4) Monocytes # (Auto) 0.6 10 ^3/uL (0-1.3) Eosinophils # (Auto) 0.2 10 ^3/uL (0-0.8) Basophils # (Auto) 0.2 10 ^3/uL (0-0.2) Nucleated Red Blood Cells 0.0 % Beta HCG, Quantitative 0.6 mIU/mL (1.5-4.2) Lipase 33 U/L (12-53) POC Glucose 110 mg/dl (70-106) Test 07/29/24 05:23 07/27/24 05:17 07/26/24 05:12 07/23/24 05:28 Sodium Level 138 mmol/L (136-145) Potassium Level 3.9 mmol/L (3.5-5.1) Chloride Level 107 mmol/L (98-107) Carbon Dioxide Level 22 mmol/L (20-31) Anion Gap 9 (5-15) Blood Urea Nitrogen 6 mg/dL (9-23) Creatinine 0.71 mg/dL (0.550-1.02) Glomerular Filtration Rate Calc 108 mL/min (>90) BUN/Creatinine Ratio 8.5 (10.0-20.0) Serum Glucose 100 mg/dL (74-106) Calcium Level 9.4 mg/dL (8.7-10.4) Phosphorus Level 4.4 mg/dL (2.4-5.1) Magnesium Level 1.9 mg/dL (1.6-2.6) Estimated GFR () 110 mL/min Estimated GFR (Non- 91 mL/min Triglycerides Level 63 mg/dL (< 150) Platelet Estimate Adequate Hypochromasia (manual) Slight Anisocytosis (manual) Moderate Microcytosis Slight Test 07/18/24 08:25 07/18/24 05:13 07/17/24 06:30 07/17/24 02:58 Prothrombin Time 11.1 sec (9.3-11.8) Prothrombin Time INR 1.05 (0.9-1.15) Activated Partial Thromboplast Time 23.6 SEC (24.5-34.5) Clumped Platelets Lactic Acid Level 0.7 mmol/L (0.4-2.0) Hepatitis B Surface Antibody Negative (Negative) Hepatitis C Antibody Negative (Negative) Test 07/17/24 00:00 3/31/25 14:47 07/16/24 14:14 D-Dimer, Quantitative 0.51 mg/L FEU (0.0-0.49) Hemoglobin A1c < 3.8 % A1C (<5.7) Iron Level 27 ug/dL (50-170) Total Iron Binding Capacity 273 ug/dL (250-425) Percent Iron Saturation 9.9 % (15-50) Ferritin 25.3 ng/mL (10-291) Cholesterol Level 158 mg/dL (< 200) LDL Cholesterol 90 mg/dL (< 100) HDL Cholesterol 57 mg/dL (40-59) Vitamin B12 Level 933 pg/mL (211-911) Folic Acid 6.25 ng/mL (>5.38) Thyroid Stimulating Hormone (TSH) 2.16 uIU/mL (0.55-4.78) Plasma/Serum Blood Alcohol < 3.0 mg/dL (<10) Troponin I High Sensitivity < 3 ng/L (</=34) Urine Color Yellow (Yellow) Urine Clarity Turbid (Clear) Urine pH 5.5 (5.0-9.0) Urine Specific [place] 1.025 (1.001-1.035) Urine Protein 1+ (Negative) Urine Ketones 4+ (Negative) Urine Blood 3+ /uL (Negative) Urine Nitrite Negative (Negative) Urine Bilirubin Negative (Negative) Urine Urobilinogen 3 mg/dL (Negative) Urine Leukocyte Esterase Negative /uL (Negative) Urine RBC 373 /hpf (0 - 4) Urine Microscopic WBC 5 /HPF (0-5) Urine Squamous Epithelial Cells Few /hpf (<5) Urine Bacteria Few /hpf (None Seen) Urine Hyaline Casts Mod /lpf (0 - 2) Urine Mucus Few (None Seen) Urine Glucose Normal mg/dL (Normal) Urine Opiates Screen Neg (NEGATIVE) Urine Fentanyl Screen Neg (NEGATIVE) Urine Barbiturates Screen Neg (NEGATIVE) Urine Phencyclidine Screen Neg (NEGATIVE) Urine Amphetamines Screen Pos (NEGATIVE) Urine Benzodiazepines Screen Neg (NEGATIVE) Urine Cocaine Screen Neg (NEGATIVE) Urine Cannabinoids Screen Neg (NEGATIVE) Other Laboratory Tests 07/31/24 08:24 07/29/24 05:23 Brief Hx & Hospital Course: This is a 43-year-old female with past medical history of uterine fibroid recurrent pancreatitis (likely due to alcohol use disorder), came to the hospital due to abdominal pain since 4 day. Pain is localized on left upper quadrant radiating to the epigastric area, left lower quadrant and left shoulder, constant, 7/10, with no clear exacerbating or relieving factor. She also reports nausea, vomiting, shortness of breath, and constipation. She also reports heavy and painful menstruation, which started on 15 June and still has per vaginal bleeding with passing blood clots. She denies chest pain, constipation, diarrhea, or any recent sick contact. treated as pancreatistis and withdrawal, withdrawal improved. pancreatitis improved but clinically still not tolerating diet. GI seen patient for egd with gastritis. not withdrawing anymore. stable to ok home. per patient will go to rehab Condition at Discharge: Good Final Diagnosis/Problems List Acute intractable abdominal pain likely due to pancreatitis Acute pancreatitis likely alcohol induced Alcohol withdrawal syndrome Microcytic hypochromic anemia likely due to menorrhagia Iron-deficiency Menorrhagia likely due to uterine fibroid Transaminitis with a hepatomegaly and hepatic steatosis likely alcohol-induced Unspecified mood disorder Substance use disorder nightmares MDD? gastritis Discharge Disposition: Home Discharge Instruct/Medications Diet: See Comment Diet comment: mechanical soft Activity: No Restrictions, As Tolerated Follow Up/Referral: pcp psychiatry Medications: prozac Discharge Statement: "Patient was advised to return to the ER or call 911 if any headaches, dizziness, shortness of breath, chest pain, abdominal pain, bleeding, fevers, or worsening of medical condition. Patient was counseled about treatment plan, medications, possible side effects, patientverbalized understanding. All questions were answered to the best of my ability. This discharge took greater then 30 minutes in planning, reviewing documentation, counseling the patient, and discussing with other team members." ASSESSMENT ASSESSMENT Assessment acute alcoholic pancreatitis Date of Service: Aug 01, 2024 Billing Provider: RITO MCNULTY MD Common Visit Codes: [id number] DISCH DAY >30min RITO MCNULTY MD Aug 01, 2024 15:18
[2024-08-02 01:00] VITALS: BP 119/73; PULSE 63; RESP 17; TEMP 98.2; O2SAT 99
[2024-08-02 05:00] VITALS: BP 103/71; PULSE 71; RESP 17; TEMP 98.5; O2SAT 95
[2024-08-02 08:00] VITALS: PULSE 59; RESP 15; O2SAT 98
[2024-08-02 09:00] VITALS: BP 130/73; PULSE 59; RESP 15; TEMP 98; O2SAT 98
--- NOTE | 2024-08-02 11:28 | DVHPN2 ---
Assessment/Plan Assessment/Plan Progress note This is a 43-year-old female with past medical history of uterine fibroid recurrent pancreatitis (likely due to alcohol use disorder), came to the hospital due to abdominal pain since 4 day. Pain is localized on left upper quadrant radiating to the epigastric area, left lower quadrant and left shoulder, constant, 7/10, with no clear exacerbating or relieving factor. She also reports nausea, vomiting, shortness of breath, and constipation. She also reports heavy and painful menstruation, which started on 15 June and still has per vaginal bleeding with passing blood clots. She denies chest pain, constipation, diarrhea, or any recent sick contact. seen today during rounds, left for rehab today physical exam aox3 clear breath sounds s1 s2 rrr no murmur abdomen soft, mildly tender no LE edema labs ekg imaging reviewed Assessment Acute intractable abdominal pain likely due to pancreatitis Acute pancreatitis likely alcohol induced Alcohol withdrawal syndrome Microcytic hypochromic anemia likely due to menorrhagia Iron-deficiency Menorrhagia likely due to uterine fibroid Transaminitis with a hepatomegaly and hepatic steatosis likely alcohol-induced Unspecified mood disorder Substance use disorder nightmares MDD? gastritis - IV fluids - 1 unit PRBCs given, H&H to be repeated and if HGB less than 7 another unit will be given - IV iron - on Librium for alcohol withdrawal - OBGYN consulted recommended doing a pelvic ultrasound and that the patient may benefit from uterine artery embolization - morphine for pain control - as per psych recommendation, patient started on prozac 20mg - tolerated clear liquid diet well and was advanced to soft diet start SSRI repeat ct diet full liq dvt ppx ambulatory Plan discussed with: Patient Date of Service: Aug 02, 2024 Billing Provider: RITO MCNULTY MD Common Visit Codes: [id number] DISCH DAY >30min RITO MCNULTY MD Aug 02, 2024 11:28
== END 2024-08-02 10:35 | disposition home or self-care (01) | DRG 282 ==
LOC: ER 14:07 → OVERFLOW 23:44 → CENTRAL 07-17 16:40 → TELE-CENTR 07-17 19:46 → CENTRAL 07-20 02:15
PROVIDERS: ADMIT Student in an Organized Health Care Education/Training Program; ATTEND Student in an Organized Health Care Education/Training Program
PROC: 30233N1 Transfusion of Nonautologous Red Blood Cells into Peripheral Vein, Percutaneous Approach (ICD-10-PCS; principal; 2024-07-17)
PROC: 0DB98ZX Excision of Duodenum, Via Natural or Artificial Opening Endoscopic, Diagnostic (ICD-10-PCS; 2024-07-31)
PROC: 0DB68ZX Excision of Stomach, Via Natural or Artificial Opening Endoscopic, Diagnostic (ICD-10-PCS; 2024-07-31)
PROC: 0DB48ZX Excision of Esophagogastric Junction, Via Natural or Artificial Opening Endoscopic, Diagnostic (ICD-10-PCS; 2024-07-31)
DX: K85.20 Alcohol induced acute pancreatitis without necrosis or infection (principal); E44.1 Mild protein-calorie malnutrition; K76.0 Fatty (change of) liver, not elsewhere classified; R16.0 Hepatomegaly, not elsewhere classified; K22.10 Ulcer of esophagus without bleeding; R71.0 Precipitous drop in hematocrit; D25.9 Leiomyoma of uterus, unspecified; F15.90 Other stimulant use, unspecified, uncomplicated; E86.0 Dehydration; Z68.28 Body mass index [BMI] 28.0-28.9, adult; F10.239 Alcohol dependence with withdrawal, unspecified; N92.0 Excessive and frequent menstruation with regular cycle; F39 Unspecified mood [affective] disorder; N94.6 Dysmenorrhea, unspecified; F32.9 Major depressive disorder, single episode, unspecified; K57.30 Diverticulosis of large intestine without perforation or abscess without bleeding; K29.70 Gastritis, unspecified, without bleeding; F17.210 Nicotine dependence, cigarettes, uncomplicated; F51.5 Nightmare disorder; K44.9 Diaphragmatic hernia without obstruction or gangrene; K59.00 Constipation, unspecified; Z59.02 Unsheltered homelessness; Z82.5 Family history of asthma and other chronic lower respiratory diseases; Z79.899 Other long term (current) drug therapy
CPT/HCPCS: 36415; 43239; 71045; 74176; 76705; 76830; 76856; 80048; 80053; 80061; 80069; 80076; 80307; 80320; 81001; 82607; 82728; 82746; 82962; 83036; 83540; 83550; 83605; 83690; 83735; 84100; 84443; 84478; 84484; 84702; 85014; 85018; 85025; 85379; 85610; 85730; 86038; 86706; 86803; 86850; 86900; 86901; 86920; 87081; 87086; 93005; 96365; 96375; 99291; G0378; J1756; J1815; J1885; J2250; J2405; J2470; J3490